=== PATIENT | male | born 1955 | race Caucasian/White ===

== ENCOUNTER → 2017-11-20 16:33 | Outpatient (CLI) | payer BC, SELFPAY ==
--- NOTE | 2017-11-20 16:50 | DI.REPORT_ITS ---
SYMPTOMS/DIAGNOSIS: COARSE WITH RALES LT BASE, COUGH, R05 PA AND LATERAL CHEST: The heart size is normal. There are linear densities seen in the right middle lobe which could represent atelectasis vs pneumonia. No left lower lobe abnormality is seen. IMPRESSION: Right middle lobe atelectasis vs pneumonia.
[2017-11-20 17:25] LABS: Abs Immature Grans 0.03 k/cumm (0.0-0.09); HCT 28.6 % (40.0-50.0); HGB 8.9 g/dL (13.5-17.5); Mean Corp. HGB Concentration 31.1 g/dL (32.0-36.0); Mean Corpuscular Hemoglobin 26.4 pg (27.0-33.0); Mean Corpuscular Volume 84.9 fL (80-95); Mean Platelet Volume 8.6 fL (8.0-11.0); Platelet Count 284 x1000/uL (130-400); RBC 3.37 m/cumm (4.50-6.00); White Blood Cell Count 13.48 k/cumm (4.4-10.8)
[2017-11-20 18:41] LABS: Absolute Eosinophil Count 0.27 k/cumm (0.0-0.7); Absolute Lymphocyte Count 5.26 k/cumm (1.2-3.4); Absolute Monocyte Count 1.62 k/cumm (0.11-0.7); Absolute Neutrophil Count 5.26 k/cumm (1.2-6.7); Atypical Lymphocytes % 22
[2017-11-20 18:42] LABS: Anisocytosis 2+; Diff Comment Manual Differential; Hypochromasia 2+; Microcytosis 2+; Other Cells 5
== END ==
PROVIDERS: PCP Family Medicine; Visit Provider Family Medicine
DX: R05 Cough (principal); R09.89 Other specified symptoms and signs involving the circulatory and respiratory systems; J98.4 Other disorders of lung
CPT/HCPCS: 36415; 71046; 85025

== ENCOUNTER → 2017-11-23 15:07 | Outpatient (CLI) | payer BC, SELFPAY | PROVIDERS: PCP Family Medicine; Visit Provider Family Medicine | DX: R79.89 Other specified abnormal findings of blood chemistry (principal) | CPT/HCPCS: 36415; 88185; 88184; 88189 ==

== ENCOUNTER 2018-01-14 10:41 | Outpatient (CLI) | payer BC, SELFPAY ==
[2018-01-14 11:10] LABS: Abs Immature Grans 0.02 k/cumm (0.0-0.09); Absolute Basophil Count 0.03 k/cumm (0.0-0.2); Absolute Eosinophil Count 0.18 k/cumm (0.0-0.7); Absolute Lymphocyte Count 0.48 k/cumm (1.2-3.4); Absolute Monocyte Count 0.44 k/cumm (0.11-0.7); Absolute Neutrophil Count 4.75 k/cumm (1.2-6.7); Basophils % 0.5; Eosinophils % 3.1; HCT 31.4 % (40.0-50.0); HGB 10.1 g/dL (13.5-17.5); Immature Grans % 0.3; Lymphocytes % 8.1; Mean Corp. HGB Concentration 32.2 g/dL (32.0-36.0); Mean Corpuscular Hemoglobin 27.2 pg (27.0-33.0); Mean Corpuscular Volume 84.6 fL (80-95); Mean Platelet Volume 8.1 fL (8.0-11.0); Monocytes % 7.5; Neutrophils % 80.5; Platelet Count 231 x1000/uL (130-400); RBC 3.71 m/cumm (4.50-6.00); RBC Distribution Width 18.3 % (11.8-14.1)
== END 2018-01-14 11:01 ==
PROVIDERS: Nurse Practitioner Adult Health; PCP Family Medicine; Visit Provider Internal Medicine
DX: C83.00 Small cell B-cell lymphoma, unspecified site (principal)
CPT/HCPCS: 36415; 86900; 86901; 85025

== ENCOUNTER 2018-01-19 16:51 | Emergency (ER) | payer BC, SELFPAY ==
[2018-01-19 16:59] VITALS: BP 110/63; PULSE 120; RESP 18; TEMP 38.3; O2SAT 98
--- NOTE | 2018-01-19 17:19 | W.ED.GENAD ---
Discharge Plan Disposition Patient Disposition: HOME Condition: Stable Discharge Details Chief Complaint: Fever Clinical Impression: Fever Primary Care Provider: Cb Finch ED Provider: Abdirahman Bell Home Meds and New Rx's Prescriptions: New levofloxacin 750 mg tablet 750 mg PO DAILY Qty: 6 RF: 0 Continue ibuprofen 600 MG tablet 600 mg PO DAILY PRNRF: 0 diazepam 5 MG tablet 5 mg PO BID PRNQty: 40 RF: 0 mupirocin 22 GM ointment 1 applic Topical BID Qty: 22 RF: 0 syringe (disposable) [B-D Slip Tip Syringe] 1 EACH syringe 1 ea Miscellaneous q 3 weeks Qty: 1 RF: 3 testosterone cypionate 100 MG/1 ML oil 100 mg IM Monthly Qty: 1 RF: 3 sildenafil [Viagra] 100 MG tablet 1 tab PO As Directed Qty: 6 RF: 4 prochlorperazine maleate [Compazine] 10 mg Tablet 5 mg PO PRN PRNRF: 0 allopurinol 300 mg Tablet 300 mg PO DAILY RF: 0 acyclovir 400 mg Tablet 400 mg PO BID RF: 0 Discharge Instructions Instructions: Fever in Adults (ED) Additional Instructions: follow up as scheduled with your oncologist on Sunday If you have severe worsening weakness, difficulty breathing, or feel significantly more ill go to the emergency department you can take 1000mg tylenol and 600mg ibuprofen every 6 hours as needed Discharge Data Discharge Physician: Abdirahman Bell Medical Decision Making 62 yo male with hx of waldenstrom's macroglobulinemia who had chemotherapy about 2 weeks ago per pt comes in with fever since yesterday. He also notes a cough for a few weeks and yesterday had n/v but none today.Denies recent travel, has no abdominal pain. Will obtain lab work and imaging to eval for neutropenic fever and pneumonia. Has no oral mucous membrane involvement and no skin sloughing but given his malignancy is at risk for sjs and ten. Will discus case with his oncologist when results are done pt remains stable and feels well. labs are reassuring, anc over 7000 so not neutropenic and other than mild hyponatremia and mild alk phos and bilirubin elevation no significant chemiestry abnormalities. Will discuss with pt's oncology team. Xray appears neg on my read Spoke with Dr. Reyes from [place]ology [place] [facility] [place] client relation specialist for dr. cantu. They advised that skin reactions are common with the chemotherpay agent he received and given no mucous membrane involvement or sloughing or blistering unlikely sjs or ten. They advised that he could either be admitted for observation or d/c'd home and return if worsening if he is reliable and f/u with his onvologist on Sunday. I discussed these options with the pt and using shared decision making he wants to go home and understands to return immediately if worsening. Oncology did ask the patient to be started on levofloxacin which I started him on and will prescribe. Differential Diagnosis neutropenic fever, pneumonia, pyelo HPI General Mode of arrival: ambulatory. Date/Time Provider Initiated Documentation: 01/19/18 16:53. Limitations to Documentation: no limitations. Information obtained by: patient. History of Present Illness 62 year old M presents to the emergency department with the chief complaint of fever, described as moderate, Quality is described as burning, Patient started experiencing this day(s) (1) and it has been constant. No relieving factors improve symptom(s), No exacerbating factors reported . Patient notes rash. Patient did receive the following treatments prior to arrival, none Related Data Home Medications Medication Instructions Recorded Confirmed ibuprofen 600 mg PO DAILY PRN 02/12/13 01/19/18 diazepam 5 mg PO BID PRN #40 tab-cap 11/04/15 01/19/18 mupirocin 1 applic TOPICAL BID #22 g 04/08/17 01/19/18 syringe (disposable) [B-D Slip Tip #1 box 05/30/17 Syringe] testosterone cypionate 100 mg IM Monthly #1 vial 08/03/17 01/19/18 sildenafil [Viagra] 1 tab PO As Directed #6 tab 08/28/17 01/19/18 acyclovir 400 mg PO BID 01/19/18 01/19/18 allopurinol 300 mg PO DAILY 01/19/18 01/19/18 levofloxacin 750 mg PO DAILY #6 tab 01/19/18 prochlorperazine maleate 5 mg PO PRN PRN 01/19/18 01/19/18 [Compazine] Previous Rx's Medication Instructions Recorded syringe (disposable) [B-D Slip Tip #1 box 05/30/17 Syringe] testosterone cypionate 100 mg IM Monthly #1 vial 08/03/17 sildenafil [Viagra] 1 tab PO As Directed #6 tab 08/28/17 levofloxacin 750 mg PO DAILY #6 tab 01/19/18 Allergies Allergy/AdvReac Type Severity Reaction Status Date / Time Sulfa (Sulfonamide Allergy Intermediate SKIN RASH Unverified 01/19/18 17:04 Antibiotics) walnut AdvReac Unknown Unverified 01/19/18 17:04 General Stated Complaint: Fever ANGELICA: 3 Review of Systems Review of Systems All systems reviewed & are unremarkable except as noted in HPI and below Constitutional Reports fever(s) Eyes Denies loss of vision ENT Denies change in voice Cardiovascular Denies chest pain and Denies dyspnea Respiratory Denies dyspnea Gastrointestinal Denies abdominal pain Genitourinary Denies dysuria Musculoskeletal Denies joint swelling Neurologic Denies loss of vision Psychiatric Denies depression Endocrine Denies cold intolerance and Denies heat intolerance Allergic/Immunologic Reports urticaria PFSH Family History Mother Diabetes Father Heart disease Brother Diabetes Grandfather No problems noted. Grandfather No problems noted. Grandmother Diabetes Grandmother No problems noted. Sister No problems noted. Sister No problems noted. Brother No problems noted. Brother No problems noted. Son Adopted Asthma Daughter Substance abuse Depression Adopted Daughter No problems noted. Social History Smoking/Tobacco Use Status: Never Surgical History Repair of inguinal hernia Repair of umbilical hernia Exam Const General: no acute distress Orientation: alert HENMT Head: normal to inspection Ears: external ears normal General nose exam: external nose normal Mouth: moist mucous membranes Eyes General: appearance normal, both eyes and all related structures Neck Neck: normal visual inspection Resp Effort & Inspection: normal respiratory effort and able to speak in complete sentences Cardio Rate: regular rate Skin General skin exam: other (erythema of both arms and torso that blanches and is not warm to touch) Neuro General: alert and oriented x3 Extrem General: normal to inspection Psych Mental Status: mental status grossly normal Course Vital Signs Temperature 38.3 C H 01/19/18 16:59 Pulse 120 H 01/19/18 16:59 Respiratory Rate 18 01/19/18 16:59 Blood Pressure 110/63 01/19/18 16:59 Pulse Oximetry 98 01/19/18 16:59 Temperature 38.3 C H 01/19/18 16:59 Temperature Source Skin 01/19/18 16:59 Pulse 120 H 01/19/18 16:59 Respiratory Rate 18 01/19/18 16:59 Respiratory Effort 01/19/18 17:10 Blood Pressure 110/63 01/19/18 16:59 Pulse Oximetry 98 01/19/18 16:59 Oxygen Delivery Method Room Air 01/19/18 16:59 Oxygen Flow Rate 0 01/19/18 16:59 Pain Level 2 01/19/18 16:59 Lab/Test Results Lab/Test Results: 01/19/18 17:06 Blood Blood Culture - Pending 01/19/18 17:06 Blood Blood Culture - Pending
--- NOTE | 2018-01-19 17:25 | ED.GENADUL_ITS ---
Discharge Plan Disposition Patient Disposition: HOME Condition: Stable Discharge Details Chief Complaint: Fever Clinical Impression: Fever Primary Care Provider: Cb Finch ED Provider: Abdirahman Bell Home Meds and New Rx's Prescriptions: New levofloxacin 750 mg tablet 750 mg PO DAILY Qty: 6 RF: 0 Continue ibuprofen 600 MG tablet 600 mg PO DAILY PRNRF: 0 diazepam 5 MG tablet 5 mg PO BID PRNQty: 40 RF: 0 mupirocin 22 GM ointment 1 applic Topical BID Qty: 22 RF: 0 syringe (disposable) [B-D Slip Tip Syringe] 1 EACH syringe 1 ea Miscellaneous q 3 weeks Qty: 1 RF: 3 testosterone cypionate 100 MG/1 ML oil 100 mg IM Monthly Qty: 1 RF: 3 sildenafil [Viagra] 100 MG tablet 1 tab PO As Directed Qty: 6 RF: 4 prochlorperazine maleate [Compazine] 10 mg Tablet 5 mg PO PRN PRNRF: 0 allopurinol 300 mg Tablet 300 mg PO DAILY RF: 0 acyclovir 400 mg Tablet 400 mg PO BID RF: 0 Discharge Instructions Instructions: Fever in Adults (ED) Additional Instructions: follow up as scheduled with your oncologist on Sunday If you have severe worsening weakness, difficulty breathing, or feel significantly more ill go to the emergency department you can take 1000mg tylenol and 600mg ibuprofen every 6 hours as needed Discharge Data Discharge Physician: Abdirahman Bell Medical Decision Making 62 yo male with hx of waldenstrom's macroglobulinemia who had chemotherapy about 2 weeks ago per pt comes in with fever since yesterday. He also notes a cough for a few weeks and yesterday had n/v but none today.Denies recent travel , has no abdominal pain. Will obtain lab work and imaging to eval for neutropenic fever and pneumonia. Has no oral mucous membrane involvement and no skin sloughing but given his malignancy is at risk for sjs and ten. Will discus case with his oncologist when results are done pt remains stable and feels well. labs are reassuring, anc over 7000 so not neutropenic and other than mild hyponatremia and mild alk phos and bilirubin elevation no significant chemiestry abnormalities. Will discuss with pt's oncology team. Xray appears neg on my read Spoke with Dr. Reyes from oncology at [facility] [place] who was stone polisher for dr. cantu. They advised that skin reactions are common with the chemotherpay agent he received and given no mucous membrane involvement or sloughing or blistering unlikely sjs or ten. They advised that he could either be admitted for observation or d/c'd home and return if worsening if he is reliable and f/u with his onvologist on Sunday. I discussed these options with the pt and using shared decision making he wants to go home and understands to return immediately if worsening. Oncology did ask the patient to be started on levofloxacin which I started him on and will prescribe. Differential Diagnosis neutropenic fever, pneumonia, pyelo HPI General Mode of arrival: ambulatory . Date/Time Provider Initiated Documentation: 01/19/18 16:53 . Limitations to Documentation: no limitations . Information obtained by: patient . History of Present Illness 62 year old M presents to the emergency department with the chief complaint of fever, described as moderate, Quality is described as burning, Patient started experiencing this day(s) (1) and it has been constant. No relieving factors improve symptom(s), No exacerbating factors reported . Patient notes rash. Patient did receive the following treatments prior to arrival, none Related Data Home Medications Medication Instructions Recorded Confirmed ibuprofen 600 mg PO DAILY PRN 02/12/13 01/19/18 diazepam 5 mg PO BID PRN #40 tab-cap 11/04/15 01/19/18 mupirocin 1 applic TOPICAL BID #22 g 04/08/17 01/19/18 syringe (disposable) [B-D Slip Tip #1 box 05/30/17 Syringe] testosterone cypionate 100 mg IM Monthly #1 vial 08/03/17 01/19/18 sildenafil [Viagra] 1 tab PO As Directed #6 tab 08/28/17 01/19/18 acyclovir 400 mg PO BID 01/19/18 01/19/18 allopurinol 300 mg PO DAILY 01/19/18 01/19/18 levofloxacin 750 mg PO DAILY #6 tab 01/19/18 prochlorperazine maleate 5 mg PO PRN PRN 01/19/18 01/19/18 [Compazine] Previous Rx's Medication Instructions Recorded syringe (disposable) [B-D Slip Tip #1 box 05/30/17 Syringe] testosterone cypionate 100 mg IM Monthly #1 vial 08/03/17 sildenafil [Viagra] 1 tab PO As Directed #6 tab 08/28/17 levofloxacin 750 mg PO DAILY #6 tab 01/19/18 Allergies Allergy/AdvReac Type Severity Reaction Status Date / Time Sulfa (Sulfonamide Allergy Intermediate SKIN RASH Unverified 01/19/18 17:04 Antibiotics) walnut AdvReac Unknown Unverified 01/19/18 17:04 General Stated Complaint: Fever ANGELICA: 3 Review of Systems Review of Systems All systems reviewed & are unremarkable except as noted in HPI and below Constitutional Reports fever(s) Eyes Denies loss of vision ENT Denies change in voice Cardiovascular Denies chest pain and Denies dyspnea Respiratory Denies dyspnea Gastrointestinal Denies abdominal pain Genitourinary Denies dysuria Musculoskeletal Denies joint swelling Neurologic Denies loss of vision Psychiatric Denies depression Endocrine Denies cold intolerance and Denies heat intolerance Allergic/Immunologic Reports urticaria PFSH Family History Mother Diabetes Father Heart disease Brother Diabetes Grandfather No problems noted. Grandfather No problems noted. Grandmother Diabetes Grandmother No problems noted. Sister No problems noted. Sister No problems noted. Brother No problems noted. Brother No problems noted. Son Adopted Asthma Daughter Substance abuse Depression Adopted Daughter No problems noted. Social History Smoking/Tobacco Use Status: Never Surgical History Repair of inguinal hernia Repair of umbilical hernia Exam Const General: no acute distress Orientation: alert HENMT Head: normal to inspection Ears: external ears normal General nose exam: external nose normal Mouth: moist mucous membranes Eyes General: appearance normal, both eyes and all related structures Neck Neck: normal visual inspection Resp Effort & Inspection: normal respiratory effort and able to speak in complete sentences Cardio Rate: regular rate Skin General skin exam: other (erythema of both arms and torso that blanches and is not warm to touch) Neuro General: alert and oriented x3 Extrem General: normal to inspection Psych Mental Status: mental status grossly normal Course Vital Signs Temperature 38.3 C H 01/19/18 16:59 Pulse 120 H 01/19/18 16:59 Respiratory Rate 18 01/19/18 16:59 Blood Pressure 110/63 01/19/18 16:59 Pulse Oximetry 98 01/19/18 16:59 Temperature 38.3 C H 01/19/18 16:59 Temperature Source Skin 01/19/18 16:59 Pulse 120 H 01/19/18 16:59 Respiratory Rate 18 01/19/18 16:59 Respiratory Effort 01/19/18 17:10 Blood Pressure 110/63 01/19/18 16:59 Pulse Oximetry 98 01/19/18 16:59 Oxygen Delivery Method Room Air 01/19/18 16:59 Oxygen Flow Rate 0 01/19/18 16:59 Pain Level 2 01/19/18 16:59 Lab/Test Results Lab/Test Results: 01/19/18 17:06 Blood Blood Culture - Pending 01/19/18 17:06 Blood Blood Culture - Pending
[2018-01-19] MEDS: Normal Saline 1,000 ML 1000 ML IV (17:32)
[2018-01-19 17:37] LABS: Lactate-non-spesis 1.8 mmol/L (0.6-1.4)
[2018-01-19 17:40] LABS: Abs Immature Grans 0.02 k/cumm (0.0-0.09); Absolute Basophil Count 0.02 k/cumm (0.0-0.2); Absolute Eosinophil Count 0.24 k/cumm (0.0-0.7); Absolute Lymphocyte Count 0.67 k/cumm (1.2-3.4); Absolute Neutrophil Count 8.06 k/cumm (1.2-6.7); Basophils % 0.2; Eosinophils % 2.6; HCT 31.3 % (40.0-50.0); HGB 10.5 g/dL (13.5-17.5); Immature Grans % 0.2; Lymphocytes % 7.1; Mean Corp. HGB Concentration 33.5 g/dL (32.0-36.0); Mean Corpuscular Hemoglobin 27.6 pg (27.0-33.0); Mean Corpuscular Volume 82.4 fL (80-95); Mean Platelet Volume 8.5 fL (8.0-11.0); Monocytes % 4.3; Neutrophils % 85.6; Platelet Count 208 x1000/uL (130-400); RBC Distribution Width 19.3 % (11.8-14.1); White Blood Cell Count 9.41 k/cumm (4.4-10.8)
[2018-01-19 17:51] LABS: INR 1.2 (1.0-3.5); PTT Activated 22.5 sec (21.0-31.4); Prothrombin Time 11.6 sec (9.3-10.8)
[2018-01-19 17:52] LABS: ALT 61 U/L (12-78); AST 37 U/L (15-37); Alkaline Phosphatase 127 U/L (46-116); Anion Gap 10.5 mmol/L (3-11); BUN 15 mg/dL (7-18); Bilirubin, Direct 0.22 mg/dL (0.00-0.20); Bilirubin, Total 1.4 mg/dL (0.2-1.0); CO2 25.5 mmol/L (21.0-32.0); CREATININE 1.07 mg/dL (0.70-1.30); Calcium 9.3 mg/dL (8.5-10.1); Chloride 94 mmol/L (98-107); Glucose 142 mg/dL (70-100); Potassium 3.8 mmol/L (3.5-5.1); Sodium 130 mmol/L (136-145)
[2018-01-19 18:05] LABS: Bilirubin Negative (Negative); Blood Small (Negative); Clarity Clear; Glucose Negative (Negative); Ketones Negative (Negative); Leukocyte Esterase Negative (Negative); Nitrite Negative (Negative); Specific Gravity <= 1.005 (1.005-1.025); Urobilinogen 0.2 EU/dL (Up TO 0.2); pH 5.5 (5-8)
--- NOTE | 2018-01-19 18:10 | DI.RAD_ITS ---
SYMPTOMS/DIAGNOSIS: FEVER PA AND LATERAL CHEST: The heart is not enlarged. Minimal linear opacities are present in the right lung base with some interval clearing from examination of 11/20/17. The lungs otherwise appear clear. No pleural effusions seen. CONCLUSION: Findings consistent with interval resolution of right basilar pneumonia since 11/20/17.
[2018-01-19 18:11] LABS: Bacteria Negative HPF (Negative); C & S Indicated? No; Casts Negative LPF (Negative); Crystals Negative HPF (Negative); Epithelial Cells Negative HPF (Negative); Mucus Negative (Negative); Other Cells Negative (Negative); RBC 0-2 (0-2); WBC 0-2 HPF (0-5)
[2018-01-19] MEDS: LEVOFLOXACIN 500 MG, LEVOFLOXACIN 250 MG 750 MG PO (18:59)
--- NOTE | 2018-01-19 19:09 | DI.VRAD_ITS ---
EXAM: XR Chest, 2 Views CLINICAL HISTORY: 62 years old, male; Signs and symptoms; Fever TECHNIQUE: Frontal and lateral views of the chest. COMPARISON: CR CHEST 2 VIEWS PA,LAT 11/20/2017 4:47 PM FINDINGS: Lungs: Decreased prominence of linear opacities in the right middle lobe. No airspace consolidation. Pleural space: No focal pathology. No pneumothorax. Heart: No focal pathology. No cardiomegaly. Mediastinum: Unremarkable. Bones/joints: Degenerative changes in the spine. IMPRESSION: Decreased prominence of linear opacities in the right middle lobe. The appearance is now most consistent with scarring or subsegmental atelectasis. Dictated and Authenticated by: Nelda Smith MD. Ordering:SIMA HENDRICKS MD
[2018-01-19 19:25] VITALS: BP 106/66; PULSE 102; RESP 16; TEMP 37.9; O2SAT 98
== END 2018-01-19 19:27 | disposition home or self-care (01) ==
PROVIDERS: Emergency Provider Emergency Medicine; PCP Family Medicine
DX: R59.0 Localized enlarged lymph nodes (principal); R05 Cough
CPT/HCPCS: 36415; 80053; 80076; 87040; 87529; 87631; 96360; 99283; 71046; 81003; 81015; 83605; 85025; 85610; 85730

== ENCOUNTER 2018-01-28 08:36 | Outpatient (CLI) | payer BC, SELFPAY ==
[2018-01-28 09:08] LABS: Abs Immature Grans 0.03 k/cumm (0.0-0.09); Absolute Basophil Count 0.02 k/cumm (0.0-0.2); Absolute Eosinophil Count 0.24 k/cumm (0.0-0.7); Absolute Lymphocyte Count 1.16 k/cumm (1.2-3.4); Absolute Monocyte Count 0.57 k/cumm (0.11-0.7); Absolute Neutrophil Count 3.05 k/cumm (1.2-6.7); Basophils % 0.4; Eosinophils % 4.7; HCT 28.7 % (40.0-50.0); HGB 9.7 g/dL (13.5-17.5); Immature Grans % 0.6; Lymphocytes % 22.9; Mean Corp. HGB Concentration 33.8 g/dL (32.0-36.0); Mean Corpuscular Hemoglobin 28.1 pg (27.0-33.0); Mean Corpuscular Volume 83.2 fL (80-95); Mean Platelet Volume 7.7 fL (8.0-11.0); Monocytes % 11.2; Neutrophils % 60.2; Platelet Count 269 x1000/uL (130-400); RBC 3.45 m/cumm (4.50-6.00); RBC Distribution Width 19.9 % (11.8-14.1); White Blood Cell Count 5.07 k/cumm (4.4-10.8)
== END 2018-01-28 08:56 ==
PROVIDERS: PCP Family Medicine; Visit Provider Internal Medicine
DX: C83.00 Small cell B-cell lymphoma, unspecified site (principal)
CPT/HCPCS: 36415; 86900; 86901; 85025

== ENCOUNTER 2018-01-29 14:56 | Outpatient (CLI) | payer BC, SELFPAY ==
--- NOTE | 2018-01-29 10:49 | DI.RAD_ITS ---
SYMPTOM/DIAGNOSIS: LOW BACK PAIN,SCIATICA, WALDENSTROMS MACROGLOBULINEMIA, M54.9, DORSALGIA,C88.00 LUMBAR SPINE: Gallstones are incidentally noted. Vertebral bodies are well maintained in height. There are endplate osteophytes throughout, greatest at L 5-S 1. There is mild disc space narrowing at L 2-3 and L 3-4. Moderate narrowing of the L 5- S 1 disc space is seen. There are prominent facet degenerative changes at L 4- 5 and L 5-S 1. No spondylolysis or spondylolisthesis is seen. IMPRESSION: Degenerative changes, greatest at L 5-S 1.
== END 2018-01-29 15:16 ==
PROVIDERS: PCP Family Medicine; Visit Provider Family Medicine
DX: M54.40 Lumbago with sciatica, unspecified side (principal); M47.817 Spondylosis without myelopathy or radiculopathy, lumbosacral region
CPT/HCPCS: 72110

== ENCOUNTER 2018-02-18 09:50 | Outpatient (CLI) | payer BC, SELFPAY ==
[2018-02-18 10:16] LABS: Abs Immature Grans 0.01 k/cumm (0.0-0.09); Absolute Basophil Count 0.03 k/cumm (0.0-0.2); Absolute Eosinophil Count 0.29 k/cumm (0.0-0.7); Absolute Lymphocyte Count 0.57 k/cumm (1.2-3.4); Absolute Monocyte Count 0.45 k/cumm (0.11-0.7); Absolute Neutrophil Count 4.27 k/cumm (1.2-6.7); Basophils % 0.5; Eosinophils % 5.2; HCT 35.1 % (40.0-50.0); HGB 12.2 g/dL (13.5-17.5); Immature Grans % 0.2; Lymphocytes % 10.1; Mean Corp. HGB Concentration 34.8 g/dL (32.0-36.0); Mean Corpuscular Hemoglobin 29.6 pg (27.0-33.0); Mean Corpuscular Volume 85.2 fL (80-95); Mean Platelet Volume 7.9 fL (8.0-11.0); Platelet Count 213 x1000/uL (130-400); RBC 4.12 m/cumm (4.50-6.00); RBC Distribution Width 18.9 % (11.8-14.1); White Blood Cell Count 5.62 k/cumm (4.4-10.8)
== END 2018-02-18 10:10 ==
PROVIDERS: PCP Family Medicine; Visit Provider Internal Medicine
DX: C83.00 Small cell B-cell lymphoma, unspecified site (principal)
CPT/HCPCS: 36415; 85025

== ENCOUNTER 2018-04-05 01:00 | Outpatient (CLI) | payer MEDICARE, SELFPAY ==
--- NOTE | 2018-04-05 07:54 | DI.MRI_ITS ---
SYMPTOM/DIAGNOSIS: LT LUMBAR RADICULOPATHY, SCIATICA, M54.30, NUMBNESS AND WEAKNESS LUMBAR SPINE MRI: Comparison is made with plain films dated 01/29/18. T 1, T 2 and STIR sagittal, T 1 coronal and T 1 and T 2 axial sequences were performed. The conus medullaris appears normal. There is slight disc bulging at L 1-2. At L 2-3, there is an endplate declivity consistent with a Schmorl's node. There is moderate concentric disc bulging but no significant central canal stenosis or neural foraminal narrowing. Mild broad base disc bulging and facet degenerative changes are seen at L 3-4. There is no significant neural foraminal narrowing. Similar degenerative disc changes are seen at L 4-5. There is no significant neural foraminal narrowing. There is loss of disc height at L 5-S 1 but no significant disc bulging or neural foraminal narrowing. No disc herniation is seen at any level. IMPRESSION: Degenerative disc changes. No evidence of a disc herniation, central canal stenosis or significant neural foraminal narrowing.
--- NOTE | 2018-04-05 16:16 | DI.VRAD_ITS ---
EXAM: MR Lumbar Spine Without and With Contrast. EXAM DATE/TIME: 04/05/2018 8:40 AM CLINICAL HISTORY: 62 years old, male; Pain; Low back pain and sciatica; Left; Patient HX: L lumbar radiculopathy TECHNIQUE: Multiplanar magnetic resonance images of the lumbar spine without and with intravenous contrast. COMPARISON: CR XR lumbar spine complete 01/29/2018 10:38 AM FINDINGS: Vertebrae: Unremarkable. Spinal cord: The conus terminates at the superior endplate of L1. Thoracic discs/Spinal canal/Neural foramina: Degenerative disc disease and facet arthrosis throughout the lumbar spine. DISCS/SPINAL CANAL/NEURAL FORAMINA: L1-L2: Mild posterior broad-based disc bulge. No nerve root impingement or spinal stenosis. L2-L3: Posterior broad-based mild disc protrusion, asymmetric to the left. No focal disc protrusion or definite nerve root impingement. There are small focal endplate deformities with mixed signal changes and mild enhancement as well as mild increased signal and enhancement of the adjacent disc. Although the findings are likely secondary to Schmorl's nodes and discovertebral signal changes, discovertebral infection is not completely excluded. Close clinical correlation is needed. Consider followup imaging as clinically indicated. L3-L4: Posterior broad-based disc mild protrusion and bilateral facet hypertrophy. No focal disc protrusion or nerve root impingement. L4-L5: Mild posterior broad-based disc protrusion and bilateral facet hypertrophy. No nerve root impingement or spinal stenosis. L5-S1: Bilateral facet hypertrophy. No focal disc protrusion or nerve impingement. Soft tissues: Unremarkable. IMPRESSION: 1. Degenerative spondylosis throughout the lumbar spine. No nerve root impingement or spinal stenosis. 2. Small endplate deformities, mild signal changes and enhancement within the posterior aspect of the L2-L3 disc level. Differential diagnosis includes Schmorl's nodes and discovertebral endplate signal changes and enhancement versus discovertebral infection. Further clinical evaluation is needed. Consider followup imaging as clinically indicated. Dictated and Authenticated by: Vaibhav Castellanos MD. Ordering:MARQUITA Vivar MD
== END 2018-04-05 01:20 ==
PROVIDERS: PCP Family Medicine; Visit Provider Family Medicine
DX: M54.42 Lumbago with sciatica, left side (principal); R20.0 Anesthesia of skin; R29.898 Other symptoms and signs involving the musculoskeletal system; M51.17 Intervertebral disc disorders with radiculopathy, lumbosacral region
CPT/HCPCS: 72148

== ENCOUNTER → 2018-07-15 12:15 | Outpatient (BNVA) | payer MEDICARE, SELFPAY | PROVIDERS: PCP Family Medicine; Visit Provider Psychiatry & Neurology Neurology | DX: M21.372 Foot drop, left foot (principal); M54.17 Radiculopathy, lumbosacral region | CPT/HCPCS: 99205; 99215 ==

== ENCOUNTER 2020-02-26 03:09 | Outpatient (CLI) | payer MEDICARE, SELFPAY ==
[2020-02-26 11:22] LABS: ALT 38 U/L (16-63); AST 23 U/L (15-37); Albumin 4.3 g/dL (3.4-5.0); Alkaline Phosphatase 104 U/L (46-116); Total Protein 7.2 g/dL (6.4-8.2)
[2020-03-01 08:58] LABS: Testosterone, Total 315 ng/dL (240-950)
[2020-03-01 14:17] LABS: PSA, Screening 19.6 ng/mL (0-4.5)
== END 2020-02-26 03:29 ==
PROVIDERS: PCP Family Medicine; Referring Provider Family Medicine; Visit Provider Family Medicine
DX: Z00.00 Encounter for general adult medical examination without abnormal findings (principal); Z79.890 Hormone replacement therapy; N40.0 Benign prostatic hyperplasia without lower urinary tract symptoms
CPT/HCPCS: 36415; 80076; 84153; 84403

== ENCOUNTER → 2020-03-10 10:30 | Outpatient (BNVA) | payer MEDICARE, SELFPAY | PROVIDERS: PCP Family Medicine; Referring Provider Family Medicine; Visit Provider Nurse Practitioner Gerontology | DX: N40.2 Nodular prostate without lower urinary tract symptoms (principal); E29.1 Testicular hypofunction; R97.20 Elevated prostate specific antigen [PSA]; Z85.72 Personal history of non-Hodgkin lymphomas | CPT/HCPCS: 99204; 99215 ==

== ENCOUNTER → 2020-03-30 14:27 | Outpatient (BNVA) | payer MEDICARE, SELFPAY | PROVIDERS: PCP Family Medicine; Referring Provider Family Medicine; Visit Provider Nurse Practitioner Gerontology | DX: R97.20 Elevated prostate specific antigen [PSA] (principal); F41.8 Other specified anxiety disorders | CPT/HCPCS: 99212 ==

== ENCOUNTER 2020-03-30 20:55 | Outpatient (REF) | payer MEDICARE, SELFPAY ==
[2020-03-31 18:54] LABS: PSA, Diagnostic 17.9 ng/mL (0.0-4.5)
== END 2020-03-30 21:15 ==
LOC: LBN 20:55
PROVIDERS: PCP Family Medicine; Visit Provider Nurse Practitioner Gerontology
DX: R97.20 Elevated prostate specific antigen [PSA] (principal)
CPT/HCPCS: 84153

== ENCOUNTER → 2020-04-16 10:25 | Outpatient (BNVA) | payer MEDICARE, SELFPAY | PROVIDERS: PCP Family Medicine; Referring Provider Family Medicine; Visit Provider Physical Therapy Assistant | DX: Z12.11 Encounter for screening for malignant neoplasm of colon (principal); Z86.010 Personal history of colon polyps ==

== ENCOUNTER 2020-04-22 02:36 | Outpatient (CLI) | payer MEDICARE, SELFPAY ==
[2020-04-23 15:31] LABS: COVID-19 RT-PCR Result NEGATIVE (Negative)
== END 2020-04-22 02:56 ==
PROVIDERS: PCP Family Medicine; Visit Provider Surgery
DX: Z11.52 Encounter for screening for COVID-19 (principal); Z01.818 Encounter for other preprocedural examination
CPT/HCPCS: U0003

== ENCOUNTER 2020-04-26 06:25 | Day surgery (SDC) | payer MEDICARE, SELFPAY ==
[2020-04-26 06:27] VITALS: BP 134/86; PULSE 73; RESP 16; TEMP 36.3; O2SAT 97
--- NOTE | 2020-04-26 06:39 | W.COLOREPORT ---
Date of service: 04/26/20 Time of Service: 08:04 Colonoscopy Report Date of procedure: 04/26/20 Pre-op diagnosis general: Hx of polyps Post-op diagnosis procedure note: same Procedure: Colonoscopy with polypectomy Surgeon: Pamela Richards Anesthesia proc note operative: other (General/ASA 2/William Reddy CRNA) Estimated blood loss (mL): 5 Pathology: other (Sigmoid polyp) Complications: None Disposition: same day Indications: 65 y/o male with history of Waldenstroms Macroglobulinemia presents for colonoscopy screening pre-op. His last screening was in 2010, which was remarkable for tubular adenoma. He denies a family history of colon cancer. He denies any changes in bowel habits including bloody or black tarry stools, abdominal pain, diarrhea or constipation. He denies constitutional symptoms. Denies use of marijuana or any other recreational or illegal drugs. He denies chest pain, palpitations, dyspnea or dyspnea with exertion. He denies prior history or family history of adverse reactions or complications with anesthesia. he reports walking and stretching daily for physical activity. The patient denies any history of stroke, VA, seizures, bleeding or clotting disorders. He denies having any implanted metal in his body. Prep: Miralax/Dulcolax Procedure Start Time: 07:35 Procedure End Time: 08:00 Retraction Time: 16 minutes Findings: One small adenomatous polyp in the proximal sigmoid colon. Procedure Description: After informed consent was obtained the patient was taken to the procedure room and placed in a left decubitous position. Monitors were applied and a time out was done. The patients name, date of , procedure, allergies to medications and metal in their body was reviewed. The patient was then sedated. Once sedated and comfortable a rectal exam was done. External exam was normal. Internal exam revealed a normal sphincter tone and no palpable masses. The prostate felt smooth and enlarged. The scope was then introduced and retro-flexed. No internal hemorrhoids, polyps or masses were identified on retro-flexion. The scope was then advanced to the cecum without difficulty. The ileocecal valve and appendiceal orifice were identified. The prep was good. The scope was then slowly retracted over 16 minutes back into the rectum. Polyps were removed with cold forceps in the proximal sigmoid colon. There was no diverticulosis noted. The scope was removed and the patient was woken up and taken back to Same day surgery in stable condition. The patient tolerated the procedure well and there were no immediate complications. Follow up: The patient should follow up in 5 years unless they develop changes in bowel habits or other new gastrointestinal complaints.
--- NOTE | 2020-04-26 06:40 | W.PM.DSUDISC ---
Discharge Plan Disposition Patient Disposition: HOME Condition: Good Discharge Details Reason For Visit: colonoscopy Attending Provider: Pamela Richards Primary Care Provider: Eric Rosario Home Meds and New Rx's Prescriptions: Continued diazepam 5 mg tablet 5 mg PO BID PRN (Reason: anxiety) Qty: 40 RF: 1 multivitamin [Daily Multi-Vitamin] Tablet 1 tab PO DAILY RF: 0 Adult Probiotic 3 billion cell capsule 3,000 mmu cells PO DAILY RF: 0 (DME) syringe (disposable) [B-D Slip Tip Syringe] 20 mL syringe 1 ea Miscellaneous q 3 weeks Qty: 40 RF: 3 ibuprofen 600 mg tablet 600 mg PO TID PRN (Reason: pain) Qty: 90 RF: 4 levofloxacin 500 mg tablet 500 mg PO DAILY Qty: 3 RF: 0 Discontinued bisacodyl [Dulcolax (bisacodyl)] 5 mg tablet,delayed release (DR/EC) 5 mg PO ONCE Qty: 4 RF: 0 No Action mupirocin 22 GM ointment 1 applic Topical BID Qty: 22 RF: 0 sildenafil [Viagra] 100 mg tablet 100 mg PO As Directed Qty: 6 RF: 4 Discharge Instructions Instructions: Colorectal Polyps (DC) Additional Instructions: Findings: one polyp Follow up: 5 years Please call if you develop: fevers >101.5 Nausea or Vomiting Abdominal pain that is not transient DAY SURGERY UNIT POST ENDOSCOPY INSTRUCTIONS 1. Because there will be medication in your system for the next 24 hours, you may feel a little sleepy. Your coordination will be affected. Therefore: a. Do not drive or operate dangerous equipment for 24 hours. b. Do not drink alcohol beverages for 24 hours (not even beer). c. Plan to go home and rest for the day. 2. Generally there are no restrictions on your activity after a day or so has gone by, but you may feel a bit fatigued for a few days. 3 After you arrive home you may have a light meal and return to a normal diet as you can tolerate it without feeling sick to your stomach. 4. After surgery, you may feel pain or discomfort. This should be only transient, but if it persists please contact your doctor. 5. If there are any questions regarding the findings of your procedure, please feel free to contact your doctor. 6. If you are unable to contact your doctor with a problem, contact the hospital at [phone]. 7. Continue all your regular medications unless directed otherwise. I understand the above instructions and have no questions. Signature of Patient or Responsible Adult Escort Date/Time Name of Responsible Adult Escort Signature of Nurse Date/Time Activity:: Activity as Tolerated Diet:: As Tolerated Discharge Orders Discharge Orders: Discharge Order (Routine); Ordered 04/26/20 Ordered By: Pamela Richards
--- NOTE | 2020-04-26 07:00 | DI.US_ITS ---
EXAM: ELEVATED PSA,R97.20 COMPARISON: No exams were available for comparison TECHNIQUE: Ultrasound performed using standard protocol. FINDINGS: Sonography was provided for Dr. Rivas during the performance of a transrectal ultrasound-guided pros wallace biopsy. Please refer to the procedure report for complete details. Prostatic volume is 55 cc. DATA REPOSITORY:
[2020-04-26] MEDS: Lactated Ringers 1,000 ML 80 ML IV (07:04)
--- NOTE | 2020-04-26 07:13 | HPE_ITS ---
Date of service: 04/26/20 Time of Service: 07:13 Assessment and Plan Assessment and plan (1) Elevated PSA: Status: Acute Assessment and plan: For ultrasound-guided biopsy of the proximal he will be having his colonoscopy under the same anesthetic. (2) Polyp of colon: Status: Chronic History of Present Illness History of Present Illness Chief Complaint: Elevated PSA Narrative: Champ is a 65-year-old male referred to urology by [facility] for elevated PSA. Patient reports that he is doing well and does not have any LUTS. He notes that he is not on any prostate medication. He denies gross hematuria, dysuria, frequency, urgency, flank pain, long bone pain, abnormal bleeding or bruising, or abnormal weight loss. He notes that he recently has finished his treatments and has been in remission for his lymphoma which was diagnosed approximately 2 to 3 years ago. He states that during his lymphoma treatment he was placed on testosterone to help increase his fatigue. He takes his injection every 3 weeks. It was last taken/administered on 26 February. Review of Systems Narrative: No fevers or chills No vision change or dysphasia No diabetes or thyroid dysfunction No shortness of breath, cough or hemoptysis No chest pain or palpitations No hepatitis, ulcers, jaundice No seizures, strokes or peripheral neuropathy No bleeding disorders Chronic back pain PFSH Medical History Benign prostatic hyperplasia (10/13/09) Cholelithiasis without obstruction (03/08/90) Hypogonadism in male (07/21/16) Knee pain DJD right knee Lumbago Other specified cardiac dysrhythmias rubi rhythm by ECG Polyp of colon T.A. Umbilical hernia Waldenstroms macroglobulinemia Surgical History Repair of inguinal hernia B/L Repair of umbilical hernia S/P Achilles tendon repair bilaterally S/P scrotal varicocelectomy Family History Mother , age 93 Diabetes Father , age 75 Heart disease Brother Diabetes Heart disease Maternal Grandfather No problems noted. Paternal Grandfather No problems noted. Maternal Grandmother Diabetes Paternal Grandmother , CHILDBIRTH at age 40. No problems noted. Sister No problems noted. Sister No problems noted. Brother No problems noted. Brother No problems noted. Son Adopted Asthma Daughter Substance abuse Depression Adopted Daughter No problems noted. Social History Smoking/Tobacco Use Status: Never Smoking risk assessment performed?: Yes Alcohol Intake: current Alcohol Intake frequency: 0-2 drinks per day Alcohol type: beer and wine Drug use: Rarely Substance use type: marijuana Caregiver/Support person: No Household members: spouse Housing: house Communication Needs: Corrective Lenses Do you need help understanding health information?: Rarely current occupation: Retired Pets and animals: No Sexually active: Yes Do you think of yourself as: straight/heterosexual Current gender identity: male What is your relationship status?: How often do you talk on the phone with friends or family?: twice per week How often do you get together with friends or relatives?: once per week How often do you attend baptism or spiritism services?: 1-3 times per year Do you belong to any clubs or organized social groups?: yes Panel score (0-1 are the most socially isolated patients): 3 What type of physical activity do you participate in: decline to answer Duration: 15-30 minutes/day Frequency: 3-4 times per week Meghan/Bahai: Episcopal Special meghan needs: No Seatbelt use: always Drive intox 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 Do you feel safe at home: Yes Do you feel safe in your relationship?: Yes Victim of physical abuse: No Victim of emotional abuse: No Victim of sexual abuse: No Would you like helpful sources: No Meds Home Medications and Allergies Home Medications Medication Instructions Recorded Confirmed Type mupirocin 1 applic TOPICAL BID #22 g 04/08/17 04/26/20 History diazepam 5 mg tablet 5 mg PO BID PRN #40 tab-cap 05/21/18 04/26/20 Rx syringe (disposable) 20 mL #40 each 03/21/19 03/10/20 Rx ibuprofen 600 mg tablet 600 mg PO TID PRN #90 tab 06/10/19 04/26/20 Rx sildenafil 100 mg tablet 100 mg PO As Directed #6 tab 12/19/19 04/26/20 Rx lactobacillus combination no.8 3 3,000 mmu cells PO DAILY 04/16/20 04/26/20 History billion cell capsule multivitamin 1 tab PO DAILY 04/16/20 04/26/20 History levofloxacin 500 mg tablet 500 mg PO DAILY #3 tab 04/19/20 04/26/20 Rx Allergies Allergy/AdvReac Type Severity Reaction Status Date / Time Sulfa (Sulfonamide Allergy Intermediate SKIN RASH Verified 04/26/20 06:31 Antibiotics) Exam Const General: cooperative, healthy appearing, comfortable and no acute distress Resp Effort & Inspection: normal respiratory effort Auscultation: clear to auscultation bilaterally Cardio Rate: regular rate Rhythm: regular rhythm GI Palpation: soft and no masses Neuro General: patient alert, patient awake and patient oriented x3 Results Last Vital Signs Temp 36.3 C L 04/26/20 06:27 Pulse 73 04/26/20 06:27 Resp 16 04/26/20 06:27 BP 134/86 04/26/20 06:27 Pulse Ox 97 04/26/20 06:27 COVID-19 Screening Have you, or household traveled for leisure in last 14 days?: No Had IN PERSON contact w/suspected or confirmed C-19 person: No
--- NOTE | 2020-04-26 07:55 | BOWEL_PTH ---
PATIENT: Champ Jurado LOC: [facility] U#:[id number] AGE/SX: 65/M ROOM: RE04/26/[address]: Pamela Richards MD : 1955 BED: DIS: 04/26/2020 SPEC #: [id number] RECD: 04/26/20 12:18 STATUS: ZARA REBoyd #: [id number] JENNIFER: 04/26/20 07:[address]: Pamela Richards DEPT: Surgical Specimen RECD BY: Arabella Peters ENTERED: 04/26/20 12:18 SP TYPE: Bowel OTHR DR: Eric Rosario MD Tissues: 1 - BIOPSY BOWEL Procedures: GROSS AND MICRO LEVEL 4 Comments: [id number]
--- NOTE | 2020-04-26 08:33 | PDOC.DSDIS_ITS ---
Discharge Plan Disposition Patient Disposition: HOME Condition: Good Discharge Details Reason For Visit: colonoscopy Attending Provider: Pamela Richards Primary Care Provider: Eric Rosario Home Meds and New Rx's Prescriptions: Continued diazepam 5 mg tablet 5 mg PO BID PRN (Reason: anxiety) Qty: 40 RF: 1 multivitamin [Daily Multi-Vitamin] Tablet 1 tab PO DAILY RF: 0 Adult Probiotic 3 billion cell capsule 3,000 mmu cells PO DAILY RF: 0 (DME) syringe (disposable) [B-D Slip Tip Syringe] 20 mL syringe 1 ea Miscellaneous q 3 weeks Qty: 40 RF: 3 ibuprofen 600 mg tablet 600 mg PO TID PRN (Reason: pain) Qty: 90 RF: 4 levofloxacin 500 mg tablet 500 mg PO DAILY Qty: 3 RF: 0 Discontinued bisacodyl [Dulcolax (bisacodyl)] 5 mg tablet,delayed release (DR/EC) 5 mg PO ONCE Qty: 4 RF: 0 No Action mupirocin 22 GM ointment 1 applic Topical BID Qty: 22 RF: 0 sildenafil [Viagra] 100 mg tablet 100 mg PO As Directed Qty: 6 RF: 4 Discharge Instructions Instructions: Colorectal Polyps (DC) Additional Instructions: Followup with Dr Rivas 1 to 2 weeks to discuss pathology results - make sure his is authorized to come to appointment as well Findings: one polyp Follow up: 5 years Please call if you develop: fevers >101.5 Nausea or Vomiting Abdominal pain that is not transient DAY SURGERY UNIT POST ENDOSCOPY INSTRUCTIONS 1. Because there will be medication in your system for the next 24 hours, you may feel a little sleepy. Your coordination will be affected. Therefore: a. Do not drive or operate dangerous equipment for 24 hours. b. Do not drink alcohol beverages for 24 hours (not even beer). c. Plan to go home and rest for the day. 2. Generally there are no restrictions on your activity after a day or so has gone by, but you may feel a bit fatigued for a few days. 3 After you arrive home you may have a light meal and return to a normal diet as you can tolerate it without feeling sick to your stomach. 4. After surgery, you may feel pain or discomfort. This should be only transient, but if it persists please contact your doctor. 5. If there are any questions regarding the findings of your procedure, please f eel free to contact your doctor. 6. If you are unable to contact your doctor with a problem, contact the hospital at [phone]. 7. Continue all your regular medications unless directed otherwise. I understand the above instructions and have no questions. Signature of Patient or Responsible Adult Escort Date/Time Name of Responsible Adult Escort Signature of Nurse Date/Time Stand Alone Forms: DSU Post op Instructions, Monica Chong (DSU) Activity:: Activity as Tolerated Shower/Bathe:: 24 hours Diet:: As Tolerated Discharge Orders Discharge Orders: Discharge Order (Routine); Ordered 04/26/20 Ordered By: Pamela Richards Discharge Data Discharge Comment: pt must void prior to discharge DS: Diagnosis Discharge Diagnosis (1) Elevated PSA: Status: Acute (2) Polyp of colon: Status: Chronic
[2020-04-26] MEDS: Lidocaine 2% Jelly 6 ML SYR (08:36)
--- NOTE | 2020-04-26 08:40 | PROST_PTH ---
PATIENT: Champ Jurado LOC: [facility] U#:[id number] AGE/SX: 65/M ROOM: RE04/26/[address]: Pamela Richards MD : 1955 BED: DIS: 04/26/2020 SPEC #: [id number] RECD: 04/26/20 12:28 STATUS: ZARA REBoyd #: [id number] JENNIFER: 04/26/20 08:[address]: Pamela Richards DEPT: Surgical Specimen RECD BY: Arabella Peters ENTERED: 04/26/20 12:31 SP TYPE: PROST OTHR DR: Eric Rosario MD Tissues: 1 - PROSTATE NEEDLE BIOPSY 2 - PROSTATE NEEDLE BIOPSY 3 - PROSTATE NEEDLE BIOPSY 4 - PROSTATE NEEDLE BIOPSY 5 - PROSTATE NEEDLE BIOPSY 6 - PROSTATE NEEDLE BIOPSY 7 - PROSTATE NEEDLE BIOPSY 8 - PROSTATE NEEDLE BIOPSY 9 - PROSTATE NEEDLE BIOPSY 10 - PROSTATE NEEDLE BIOPSY 11 - PROSTATE NEEDLE BIOPSY 12 - PROSTATE NEEDLE BIOPSY Procedures: GROSS AND MICRO LEVEL 4 Comments: [id number]
[2020-04-26 09:07] VITALS: BP 155/80; PULSE 62; RESP 18; TEMP 35.9; O2SAT 99
--- NOTE | 2020-04-26 09:09 | W.PM.OP ---
Date of service: 04/26/20 Time of Service: 08:20 Operative Note Operative Note DATE OF PROCEDURE: 04/26/20 PRE-OP DIAGNOSIS: Elevated PSA POST-OP DIAGNOSIS: same PROCEDURE: Transrectal ultrasound-guided biopsy of the prostate SURGEON: Ketan Rivas ANESTHESIA: other (General/ASA 2/William Reddy CRNA) ESTIMATED BLOOD LOSS: 25 PATHOLOGY: other (12 laterally directed biopsies of the prostate) COMPLICATIONS: None Patient was transported to: same day Patient's condition: stable Indications: This is a 65-year-old gentleman who has a finding of an elevated PSA of 17.9 ng/mL. He has been on testosterone replacement therapy in the past. He presents for ultrasound-guided biopsy of the prostate Findings: Prostate volume 55 cc Calcifications in the transition zone No obvious hypoechoic areas in the peripheral zone Procedure Description: The patient was brought to the operating room on 04/26/2020. After successful induction of general anesthesia without intubation, he was placed in the left lateral position. He then underwent colonoscopy by the general surgery team. Once the colonoscopy was completed, we prepared for ultrasound-guided biopsy of the prostate. Transrectal imaging of the prostate was performed using a variable megahertz transducer. The prostate was imaged in transverse and longitudinal planes. The prostatic volume was calculated at 55 cc. The prostate was diffusely enlarged with a few calcifications seen in the transition zone. No specific hypoechoic areas were seen in the peripheral zone. A periprostatic nerve block was performed using 1% Xylocaine. We then took 12 laterally directed biopsies and sent each of the specimen to pathology for permanent section. He tolerated this procedure well with no acute complications. He was taken back to day surgery in stable condition.
== END 2020-04-26 10:05 | disposition home or self-care (01) ==
PROVIDERS: Urology; PCP Family Medicine; Visit Provider Surgery
PROC: 0DJD8ZZ Inspection of Lower Intestinal Tract, Via Natural or Artificial Opening Endoscopic (ICD-10-PCS; CPT 45378; principal; 2020-04-26 07:30)
DX: Z12.11 Encounter for screening for malignant neoplasm of colon (principal); R97.20 Elevated prostate specific antigen [PSA]; Z86.010 Personal history of colon polyps; C61 Malignant neoplasm of prostate; Z80.0 Family history of malignant neoplasm of digestive organs; D12.4 Benign neoplasm of descending colon
CPT/HCPCS: 55700; 45380; 76942; 88305; NC

== ENCOUNTER → 2020-05-11 11:06 | Outpatient (BNVA) | payer MEDICARE, SELFPAY | PROVIDERS: PCP Family Medicine; Referring Provider Family Medicine; Visit Provider Urology | DX: Z48.816 Encounter for surgical aftercare following surgery on the genitourinary system (principal); C61 Malignant neoplasm of prostate | CPT/HCPCS: 99214; 99443 ==

== ENCOUNTER 2020-05-26 01:11 | Outpatient (CLI) | payer MEDICARE, SELFPAY ==
--- NOTE | 2020-05-26 07:00 | DI.NM_ITS ---
EXAM: NM BONE SCAN WHOLE BODY GRP CLINICAL HISTORY: baseline after new diagnosis of prostate cancer,C61. TECHNIQUE: Injected Dose: 25 mCi Tc-99m MDP Delayed Images: 2-3 hours. COMPARISON: No exams were available for comparison FINDINGS: There is no abnormal focal uptake in the skeleton to suggest metastatic osseous disease. There is increased focal uptake seen in the anterior neck suprasternal notch area. This is in the re gion of the thyroid gland and may be significant uptake. Below this level there is symmetrical uptak e in these in both sterno clavicular joints which is most probably degenerative. IMPRESSION: 1. No evidence of osseous metastatic disease. 2. There is abnormal focal uptake seen in the lower anterior neck suprasternal notch region. This is in the region of the thyroid gland. Recommend further imaging of this area, starting with ultrasoun d of the thyroid gland and midline tissues above the thyroid. Also recommend plain films of the cerv ical spine. DATA REPOSITORY:
== END 2020-05-26 01:12 ==
LOC: DI 01:12
PROVIDERS: PCP Family Medicine; Visit Provider Urology
DX: C61 Malignant neoplasm of prostate (principal); Z12.89 Encounter for screening for malignant neoplasm of other sites
CPT/HCPCS: 78306

== ENCOUNTER → 2020-05-28 11:00 | Outpatient (BNVA) | payer MEDICARE, SELFPAY | PROVIDERS: PCP Family Medicine; Referring Provider Family Medicine; Visit Provider Urology | DX: C61 Malignant neoplasm of prostate (principal); R97.20 Elevated prostate specific antigen [PSA]; E29.1 Testicular hypofunction | CPT/HCPCS: 99215; G2212 ==

== ENCOUNTER → 2020-06-17 10:31 | Outpatient (BNVA) | payer MEDICARE, SELFPAY | PROVIDERS: PCP Family Medicine; Referring Provider Family Medicine; Visit Provider Urology | DX: C61 Malignant neoplasm of prostate (principal) | CPT/HCPCS: 99214; 99215 ==

== ENCOUNTER → 2020-09-24 10:29 | Outpatient (BNVA) | payer MEDICARE, SELFPAY | PROVIDERS: PCP Family Medicine; Referring Provider Family Medicine; Visit Provider Urology | DX: C61 Malignant neoplasm of prostate (principal) | CPT/HCPCS: 99214; 99215 ==

== ENCOUNTER 2020-11-04 14:35 | Outpatient (CLI) | payer MEDICARE, SELFPAY ==
[2020-11-05 18:32] LABS: PSA, Diagnostic 21.9 ng/mL (0.0-4.5)
== END 2020-11-04 14:36 | disposition home or self-care (01) ==
LOC: LBO 14:40
PROVIDERS: PCP Family Medicine; Visit Provider Urology
DX: C61 Malignant neoplasm of prostate (principal)
CPT/HCPCS: 36415; 84153

== ENCOUNTER 2021-03-23 00:10 | Outpatient (CLI) | payer MEDICARE, SELFPAY ==
--- NOTE | 2021-03-23 07:00 | DI.US_ITS ---
Exam(s) US THYROID EXAM: US THYROID CLINICAL HISTORY: thyroid disease,e07.9,disorder of thyroid gland, f/u bone scan. TECHNIQUE: Ultrasound thyroid performed using standard protocol. COMPARISON: US US PROSTATE BIOPSY from 04/26/2020 NM NM BONE SCAN WHOLE BODY GRP from 05/26/2020 FINDINGS: Both thyroid lobes exhibit normal size as does the isthmus. There findings in both thyroid lobes, mo st significant finding in the right lobe. RIGHT THYROID LOBE: Measures 1.7 cm AP x 2.1 cm wide x 5.6 cm craniocaudal The largest most significant nodule is at approximately the midpole level. It is called nodule #1 Nodule #1 Size: Measures 1.7 cm wide by 0.9 cm AP by 1.8 cm craniocaudal cm Composition: Mixed solid-cystic= 1 point Echogenicity: Solid component is hypoechoic relative to the remainder of the gland= 2pts Shape: Wider than taller-0 points Margin: Smooth- 0 points Echogenic Foci: None - 0 points Total Points for this nodule: 3 ACR Ti-Rads Category: TR3 Given that this nodule is between 1.5 and 2.5 cm maximum measurement, it can be followed. Nodule #2 the 2nd nodule the right lobe is higher up in the right lobe. Size: Measures 0.4 x 0.5 x 0.9 cm Composition: Almost completely solid-2 points Echogenicity: Hypoechoic- 2 points Shape: Wider than taller- 0 points Margin: Smooth-0 points Echogenic Foci: None-0 points Total points for this nodule: 4 ACR Ti-Rads Category: TR4. Given that this nodule measures less than 1.5 cm can be followed LEFT THYROID LOBE: Measures 1.6 cm AP x 2.0 wide x cm craniocaudal At the junction of the isthmus and left lobe there is a oval benign cyst measuring 10 by 4 millimeter s. Another smaller cyst is also noted in the left lobe. Laterally there is a small solid nodule, labeled as nodule #1 Nodule #1 Size: Measures 0.5 x 0.4 x 0.3 cm Composition: Mixed efofk-daktof-7 points Echogenicity: Hypoechoic-2 points Shape: Wider than taller-0 points Margin: Smooth-0 points Echogenic Foci: None-0 points Total points for this nodule: 3 ACR Ti-Rads Category: 3. This small nodule can be followed. LYMPH NODES: There is no significant adenopathy. IMPRESSION: 1. Both thyroid lobes exhibit upper normal size, as does the isthmus. 2. The main nodular finding is the largest nodule which is in the mid-lower right thyroid lobe, antonieta tering as a TIRADS 3 nodule. Maximum size of this nodules 1.8 cm and therefore it can be followed. Recommend repeat thyroid ultrasound in 1 year, earlier if clinically indicated. 3. There is no significant lymphadenopathy. DATA REPOSITORY:
== END 2021-03-23 00:30 ==
PROVIDERS: PCP Family Medicine; Visit Provider Family Medicine
DX: E04.2 Nontoxic multinodular goiter (principal); E07.89 Other specified disorders of thyroid
CPT/HCPCS: 36415; 84403; 76536; 84153

== ENCOUNTER 2021-03-23 01:40 | Outpatient (CLI) | payer MEDICARE, SELFPAY ==
[2021-03-23 22:55] LABS: PSA, Diagnostic 23.4 ng/mL (0.0-4.5)
[2021-03-27 09:26] LABS: Testosterone, Total 259 ng/dL (240-950)
== END 2021-03-23 01:41 | disposition home or self-care (01) ==
LOC: LBO 01:40
PROVIDERS: PCP Family Medicine; Visit Provider Urology
DX: C61 Malignant neoplasm of prostate (principal)
CPT/HCPCS: 36415; 84403; 84153

== ENCOUNTER 2021-05-19 15:48 | Outpatient (REF) | payer MEDICARE, SELFPAY | END 2021-05-19 15:49 | disposition home or self-care (01) | LOC: LBN 15:48 | PROVIDERS: PCP Family Medicine; Visit Provider Urology | DX: R39.89 Other symptoms and signs involving the genitourinary system (principal) | CPT/HCPCS: 87086 ==

== ENCOUNTER 2021-05-30 02:22 | Outpatient (CLI) | payer MEDICARE, SELFPAY ==
[2021-05-30 11:40] LABS: Source Nasal/Nares
[2021-05-30 17:58] LABS: COVID-19 PCR Negative (Negative)
== END 2021-05-30 02:23 | disposition home or self-care (01) ==
PROVIDERS: PCP Family Medicine; Visit Provider Urology
DX: Z20.822 Contact with and (suspected) exposure to COVID-19 (principal); Z01.818 Encounter for other preprocedural examination
CPT/HCPCS: 87635; U0005

== ENCOUNTER 2021-08-02 06:01 | Outpatient (CLI) | payer MEDICARE, SELFPAY ==
[2021-08-02 14:28] LABS: Calculated LDL 138 mg/dL (<100); Cholesterol 198 mg/dL (<200); HDL Cholesterol 48 mg/dL (40-60); Triglyceride 63 mg/dL (<150)
[2021-08-03 19:16] LABS: PSA, Ultrasensitive 0.05 ng/mL (<= 4.5)
== END 2021-08-02 06:02 | disposition home or self-care (01) ==
LOC: LBO 06:01
PROVIDERS: PCP Family Medicine; Visit Provider Urology
DX: C61 Malignant neoplasm of prostate; E78.00 Pure hypercholesterolemia, unspecified
CPT/HCPCS: 36415; 80061; 84153

== ENCOUNTER 2021-09-07 03:57 | Outpatient (CLI) | payer MEDICARE, SELFPAY ==
[2021-09-07 14:57] LABS: Abs Immature Grans 0.03 10^3/uL (0.0-0.06); Absolute Basophil Count 0.04 10^3/uL (0.0-0.2); Absolute Lymphocyte Count 1.08 10^3/uL (1.2-3.4); Absolute Monocyte Count 0.31 10^3/uL (0.1-0.8); Absolute Neutrophil Count 3.95 10^3/uL (1.2-6.7); Basophils % 0.7; Eosinophils % 1.8; HCT 39.8 % (40.0-50.0); HGB 13.6 g/dL (13.5-17.5); Immature Grans % 0.5; Lymphocytes % 19.6; MCH 29.1 pg (27.0-33.0); MCHC 34.2 % (32.0-36.0); MCV 85 fL (80-95); MPV 9.2 fL (8.0-11.0); Monocytes % 5.6; Neutrophils % 71.8; Platelet Count 212 10^3/uL (130-400); RBC 4.68 10^6/uL (4.36-5.78); RDW 13.7 % (11.8-14.1); RDW-SD 42.9 fL; WBC 5.51 10^3/uL (4.4-10.8)
[2021-09-07 15:41] LABS: ALT 27 U/L (16-63); AST 15 U/L (15-37); Alkaline Phosphatase 120 U/L (46-116); BUN 11 mg/dL (7-18); CREATININE 0.8 mg/dL (0.70-1.30); Calcium 9.1 mg/dL (8.5-10.1); Chloride 104 mmol/L (98-107); Glucose 117 mg/dL (74-106); LDH 133 U/L (85-227); Potassium 4.4 mmol/L (3.5-5.1); Sodium 141 mmol/L (136-145); Total Protein 6.5 g/dL (6.4-8.2)
[2021-09-08 10:16] LABS: IgA 74 mg/dL (85-499); IgG 535 mg/dL (610-1,616); IgM 459 mg/dL (35-242)
[2021-09-08 21:36] LABS: PSA, Ultrasensitive 0.04 ng/mL (<= 4.5)
== END 2021-09-07 03:58 | disposition home or self-care (01) ==
PROVIDERS: Radiology Radiation Oncology; PCP Family Medicine; Visit Provider Nurse Practitioner Adult Health
DX: C88.0 Waldenstrom macroglobulinemia (principal); C61 Malignant neoplasm of prostate
CPT/HCPCS: 36415; 80053; 82784; 84153; 83615; 85025

== ENCOUNTER 2021-11-29 03:05 | Outpatient (CLI) | payer MEDICARE, SELFPAY ==
[2021-11-29 09:57] LABS: Abs Immature Grans 0.01 10^3/uL (0.0-0.06); Absolute Basophil Count 0.03 10^3/uL (0.0-0.2); Absolute Eosinophil Count 0.07 10^3/uL (0.0-0.7); Absolute Lymphocyte Count 1.03 10^3/uL (1.2-3.4); Absolute Neutrophil Count 3.23 10^3/uL (1.2-6.7); Basophils % 0.6; Eosinophils % 1.5; HCT 39.3 % (40.0-50.0); HGB 13.6 g/dL (13.5-17.5); Immature Grans % 0.2; Lymphocytes % 21.6; MCHC 34.6 % (32.0-36.0); MCV 87 fL (80-95); MPV 8.9 fL (8.0-11.0); Monocytes % 8.4; Neutrophils % 67.7; Platelet Count 147 10^3/uL (130-400); RBC 4.54 10^6/uL (4.36-5.78); RDW 13.4 % (11.8-14.1); RDW-SD 42.5 fL; WBC 4.77 10^3/uL (4.4-10.8)
[2021-11-29 10:22] LABS: ALT 26 U/L (16-63); AST 17 U/L (15-37); Albumin 4.1 g/dL (3.4-5.0); Alkaline Phosphatase 82 U/L (46-116); BUN 16 mg/dL (7-18); Bilirubin, Total 1.9 mg/dL (0.2-1.0); CREATININE 0.9 mg/dL (0.70-1.30); Chloride 103 mmol/L (98-107); Glucose 101 mg/dL (74-106); LDH 131 U/L (85-227); Potassium 4.4 mmol/L (3.5-5.1); Sodium 138 mmol/L (136-145); Total Protein 6.9 g/dL (6.4-8.2)
[2021-11-30 09:42] LABS: IgA 73 mg/dL (85-499); IgG 559 mg/dL (610-1,616); IgM 491 mg/dL (35-242)
[2021-11-30 11:42] LABS: Lyme Ab w Rflx to Lyme Confirm Negative (Negative)
[2021-11-30 15:11] LABS: PSA, Ultrasensitive 0.06 ng/mL (<= 4.5)
[2021-12-01 20:38] LABS: Anaplasma phagocytophilum Negative (Negative); B. miyamotoi PCR Negative (Negative); Babesia divergens/MO-1 Negative (Negative); Babesia duncani Negative (Negative); Babesia microti Negative (Negative); Ehrlichia chaffeensis Negative (Negative); Ehrlichia ewingii/canis Negative (Negative); Ehrlichia muris eauclairensis Negative (Negative)
== END 2021-11-29 03:06 | disposition home or self-care (01) ==
PROVIDERS: Nurse Practitioner Adult Health; Physician Assistant; PCP Family Medicine; Visit Provider Radiology Radiation Oncology
DX: C61 Malignant neoplasm of prostate (principal); C88.0 Waldenstrom macroglobulinemia; M25.561 Pain in right knee; M25.461 Effusion, right knee
CPT/HCPCS: 80053; 82784; 84153; 87798; 83615; 85025; 86618

== ENCOUNTER 2022-05-09 03:09 | Outpatient (CLI) | payer MEDICARE, SELFPAY ==
[2022-05-09 13:34] LABS: Abs Immature Grans 0.02 10^3/uL (0.0-0.06); Absolute Basophil Count 0.06 10^3/uL (0.0-0.2); Absolute Eosinophil Count 0.08 10^3/uL (0.0-0.7); Absolute Monocyte Count 0.45 10^3/uL (0.1-0.8); Absolute Neutrophil Count 5.04 10^3/uL (1.2-6.7); Basophils % 0.8; Eosinophils % 1.1; HCT 40.4 % (40.0-50.0); HGB 13.9 g/dL (13.5-17.5); Immature Grans % 0.3; MCH 30.1 pg (27.0-33.0); MCHC 34.4 % (32.0-36.0); MCV 87 fL (80-95); MPV 8.9 fL (8.0-11.0); Monocytes % 6.3; Neutrophils % 70.5; Platelet Count 174 10^3/uL (130-400); RBC 4.62 10^6/uL (4.36-5.78); RDW 13.6 % (11.8-14.1); RDW-SD 43.7 fL; WBC 7.15 10^3/uL (4.4-10.8)
[2022-05-09 13:50] LABS: ALT 25 U/L (16-63); AST 22 U/L (15-37); Albumin 4.1 g/dL (3.4-5.0); Alkaline Phosphatase 107 U/L (46-116); Anion Gap 5.8 mmol/L (3-11); BUN 12 mg/dL (7-18); Bilirubin, Total 1.4 mg/dL (0.2-1.0); CO2 31.2 mmol/L (21.0-32.0); CREATININE 0.9 mg/dL (0.70-1.30); Calcium 9.4 mg/dL (8.5-10.1); Chloride 103 mmol/L (98-107); Estimated GFR 92.45 (mL/min/1.73m2); Glucose 107 mg/dL (74-106); LDH 158 U/L (85-227); Potassium 4.2 mmol/L (3.5-5.1); Sodium 140 mmol/L (136-145)
[2022-05-10 10:16] LABS: IgA 87 mg/dL (85-499); IgG 613 mg/dL (610-1616); IgM 622 mg/dL (35-242)
== END 2022-05-09 03:10 | disposition home or self-care (01) ==
LOC: LBO 03:09
PROVIDERS: PCP Family Medicine; Visit Provider Nurse Practitioner Adult Health
DX: C61 Malignant neoplasm of prostate (principal); C88.0 Waldenstrom macroglobulinemia
CPT/HCPCS: 36415; 80053; 82784; 84153; 83615; 85025

== ENCOUNTER 2022-07-19 14:37 | Outpatient (CLI) | payer MEDICARE, SELFPAY ==
[2022-07-21 16:42] LABS: PSA, Ultrasensitive 0.13 ng/mL (<= 4.5)
== END 2022-07-19 14:38 | disposition home or self-care (01) ==
LOC: LBO 14:48
PROVIDERS: PCP Family Medicine; Visit Provider Radiology Radiation Oncology
DX: C61 Malignant neoplasm of prostate (principal)
CPT/HCPCS: 36415; 84153

== ENCOUNTER → 2022-08-28 11:00 | Outpatient (BNVA) | payer MEDICARE, SELFPAY | PROVIDERS: PCP Family Medicine; Referring Provider Family Medicine; Visit Provider Nurse Practitioner Gerontology | DX: N52.9 Male erectile dysfunction, unspecified (principal); C61 Malignant neoplasm of prostate | CPT/HCPCS: 99213 ==

== ENCOUNTER 2022-10-13 14:55 | Outpatient (CLI) | payer MEDICARE, SELFPAY ==
[2022-10-16 18:01] LABS: PSA, Ultrasensitive <0.01 ng/mL (<= 4.5)
[2022-10-19 13:53] LABS: Testosterone, Total <7.0 ng/dL (240-950)
== END 2022-10-13 14:56 | disposition home or self-care (01) ==
LOC: LBO 14:55
PROVIDERS: PCP Family Medicine; Visit Provider Radiology Radiation Oncology
DX: C61 Malignant neoplasm of prostate (principal)
CPT/HCPCS: 36415; 84153; 84403

== ENCOUNTER → 2022-12-05 09:25 | Outpatient (BNVA) | payer MEDICARE, SELFPAY | PROVIDERS: PCP Family Medicine; Referring Provider Family Medicine; Visit Provider Surgery | DX: K43.2 Incisional hernia without obstruction or gangrene (principal) | CPT/HCPCS: 99213 ==

== ENCOUNTER 2022-12-28 04:06 | Outpatient (CLI) | payer MEDICARE, SELFPAY ==
[2022-12-28 13:06] LABS: Abs Immature Grans 0.01 10^3/uL (0.0-0.06); Absolute Basophil Count 0.02 10^3/uL (0.0-0.2); Absolute Eosinophil Count 0.05 10^3/uL (0.0-0.7); Absolute Lymphocyte Count 0.35 10^3/uL (1.2-3.4); Absolute Neutrophil Count 3.46 10^3/uL (1.2-6.7); Basophils % 0.5; Eosinophils % 1.2; HCT 33.3 % (40.0-50.0); HGB 11.6 g/dL (13.5-17.5); Immature Grans % 0.2; Lymphocytes % 8.4; MCH 30.7 pg (27.0-33.0); MCHC 34.8 % (32.0-36.0); MCV 88 fL (80-95); MPV 8.6 fL (8.0-11.0); Monocytes % 7.2; Neutrophils % 82.5; Platelet Count 134 10^3/uL (130-400); RBC 3.78 10^6/uL (4.36-5.78); RDW 13.8 % (11.8-14.1); RDW-SD 44.7 fL; WBC 4.19 10^3/uL (4.4-10.8)
[2022-12-28 15:13] LABS: ALT 45 U/L (16-63); AST 28 U/L (15-37); Albumin 3.6 g/dL (3.4-5.0); Alkaline Phosphatase 123 U/L (46-116); Anion Gap 5.7 mmol/L (3-11); BUN 15 mg/dL (7-18); Bilirubin, Total 1.4 mg/dL (0.2-1.0); CO2 29.3 mmol/L (21.0-32.0); CREATININE 0.9 mg/dL (0.70-1.30); Calcium 9.4 mg/dL (8.5-10.1); Chloride 102 mmol/L (98-107); Estimated GFR 92.45 (mL/min/1.73m2); Glucose 112 mg/dL (74-106); LDH 164 U/L (85-227); Sodium 137 mmol/L (136-145); Total Protein 6.7 g/dL (6.4-8.2)
[2022-12-29 09:25] LABS: IgA 82 mg/dL (85-499); IgG 501 mg/dL (610-1616); IgM 581 mg/dL (35-242)
[2023-01-01 16:16] LABS: PSA, Ultrasensitive <0.01 ng/mL (<= 4.5)
[2023-01-01 16:22] LABS: Testosterone, Total <7.0 ng/dL (240-950)
== END 2022-12-28 04:07 | disposition home or self-care (01) ==
LOC: LBO 04:10
PROVIDERS: PCP Family Medicine; Visit Provider Radiology Radiation Oncology
DX: C61 Malignant neoplasm of prostate (principal); C88.0 Waldenstrom macroglobulinemia
CPT/HCPCS: 36415; 80053; 82784; 84153; 84403; 83615; 85025

== ENCOUNTER 2023-02-21 08:27 | Day surgery (SDC) | payer MEDICARE, SELFPAY ==
[2023-02-21] VITALS (11 sets, daily range): BP systolic 90–131; BP diastolic 56–78; PULSE 48–73; RESP 14–19; TEMP 36–36.7; O2SAT 95–100; BMI 26.9
--- NOTE | 2023-02-21 06:42 | W.PREOPHP ---
Assessment and Plan Assessment and plan (1) Incisional hernia: Status: Acute Assessment and plan: Champ is a pleasant 67-year-old gentleman who comes in with an incisional hernia. I spent 30 minutes discussing the procedure itself. We reviewed the pathophysiology of hernias as well as the area repair with mesh. I reviewed activity restrictions after surgery with him. We reviewed the reasons to have a hernia repaired as well as the signs and symptoms of strangulation. With as active as the patient is I do think that he would benefit from having a hernia repair. After conversation he seemed to have a good understanding of the procedure and its risks. Risks, benefits and complications have been reviewed. Complications include but are not limited to bleeding, pain, infection, injury to underlying structures like bowel, recurrence, hematoma, seroma, chronic pain and adverse reaction to the medication. Questions were entertained and answered to their satisfaction and they wished to proceed. No guarantees were given or implied. He will call us once he takes a look at the calendar to schedule his surgery. Anesthesia: general Previous surgical intolerances: No Previous surgical complications: No Pulmonary risk factors: none Planned procedure: Yes Sleep apnea risks: No Can climb one flight of stairs (12-13 steps) in less than 30 seconds without stopping and without symptoms: Yes The surgery proposed for this patient is: low risk Active cardiac conditions: none Active risk factors: none ASA (acetylsalicylic acid): not used Beta blockers: not used Proceed with incisional hernia repair with mesh Qualifiers: Obstruction and gangrene presence: without obstruction or gangrene Qualified Code(s): K43.2 - Incisional hernia without obstruction or gangrene History of Present Illness Narrative: Champ Jurado is a pleasant 67-year-old gentleman who was referred by his primary care physician regarding an incisional hernia. He was diagnosed with prostate cancer and underwent a robotic prostatectomy. Over the last few months he noted a small bulge just to the right of the incision. It is somewhat uncomfortable at times. He has had no changes in bowel habits, nausea, vomiting. He is a very active 67-year-old who still loves to mountain bike and ski. 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 He is lifting up to 80 pounds sometimes. He can see the hernia when he stands up. He has never had it gets stuck to where he has pain. Aside from his prostate cancer he is a very healthy gentleman. He did have COVID in November and took Paxlovid. He had a cough for quite some time but that is now slowly settling down. He is still able to do all of his activities Review of Systems All systems reviewed & are unremarkable except as noted in HPI and below PFSH All Active Problems Incisional hernia (Acute) Erectile dysfunction (Acute) Preventative health care (Acute) COVID-19 (Acute ~06/23/22) Thyroid disease (Acute) Rash (Acute) Actinic keratoses (Acute) Abnormal thyroid uptake (Acute) Prostate cancer (Chronic) Tubular adenoma of colon (Acute) Elevated PSA (Acute) Long-term current use of testosterone replacement therapy (Acute) Bronchitis (Acute) likely viral History of umbilical hernia repair (Acute) Status post inguinal hernia repair (Acute) Lumbosacral radiculopathy at L5 (Chronic) Left foot drop (Chronic) Waldenstroms macroglobulinemia (Chronic) Umbilical hernia (Chronic) Polyp of colon (Chronic) T.A. Lumbago (Chronic) Knee pain (Chronic) DJD right knee Hypogonadism in male (Chronic 07/21/16) Other specified cardiac dysrhythmias (Chronic) rubi rhythm by ECG Benign prostatic hyperplasia (Chronic 10/13/09) Medical History Cholelithiasis without obstruction (03/08/90) Surgical History History of abdominal prostatectomy S/P scrotal varicocelectomy S/P Achilles tendon repair bilaterally Repair of umbilical hernia Repair of inguinal hernia B/L Family History Mother , age 93 Diabetes Father , age 75 Heart disease Brother Diabetes Heart disease Maternal Grandfather No problems noted. Paternal Grandfather No problems noted. Maternal Grandmother Diabetes Paternal Grandmother , CHILDBIRTH at age 40. No problems noted. Sister No problems noted. Sister No problems noted. Brother No problems noted. Brother No problems noted. Son Adopted Asthma Daughter Substance abuse Depression Adopted Daughter No problems noted. Social History Smoking/Tobacco Use Status: Never Second Hand Exposure: Yes Counseling given: other Smoking risk assessment performed?: Yes Alcohol Intake: current Alcohol Intake frequency: a few times a week Alcohol type: beer Drug use: Occasionally Substance use type: marijuana Counseling given: No Counseling provided: none Caregiver/Support person: No Household members: spouse Housing: house Communication Needs: None Do you need help understanding health information?: Rarely current occupation: Retired Pets and animals: No Sexually active: Yes Do you think of yourself as: straight/heterosexual Current gender identity: male What is your relationship status?: How often do you talk on the phone with friends or family?: three or more times per week How often do you get together with friends or relatives?: twice per week How often do you attend hindu or lutheran services?: 1-3 times per year Do you belong to any clubs or organized social groups?: yes Panel score (0-1 are the most socially isolated patients): 3 What type of physical activity do you participate in: walking and other Details: Hiking, Skiing Duration: 15-30 minutes/day Frequency: 5-6 times per week Meghan/Cheondoism: Worship Special meghan needs: No Seatbelt use: always Helmet use: Yes Helmet use: always Drive intox 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 Do you feel safe at home: Yes Do you feel safe in your relationship?: Yes Victim of physical abuse: No Victim of emotional abuse: No Victim of sexual abuse: No Would you like helpful sources: No Meds Allergies and Home Medications Allergies Allergy/AdvReac Type Severity Reaction Status Date / Time Sulfa (Sulfonamide Allergy Intermediate SKIN RASH Verified 02/21/23 08:41 Antibiotics) Home Medications Medication Instructions Recorded Confirmed Type diazepam 5 mg tablet 5 mg PO BID PRN anxiety #40 05/21/18 02/21/23 Rx tab-caps lactobacillus combination no.8 3 3,000 mmu cells PO DAILY 04/16/20 02/21/23 History billion cell capsule (Adult Probiotic) multivitamin (Daily Multi-Vitamin 1 tab PO DAILY 04/16/20 02/21/23 History tablet) sildenafil 100 mg tablet (Viagra) 100 mg PO As Directed #90 tabs 12/15/20 02/21/23 Rx ibuprofen 600 mg tablet 600 mg PO TID PRN pain #90 tabs 09/02/22 02/21/23 Rx Exam Const General: cooperative, comfortable and no acute distress Nutritional Appearance: average body habitus Orientation: alert and oriented x3 HENMT Head: normocephalic and atraumatic Resp Effort & Inspection: normal respiratory effort Auscultation: clear to auscultation bilaterally Cardio Rate: regular rate Rhythm: regular rhythm Heart Sounds: no gallops, no murmurs and no rubs GI Inspection: scar (well healed) Palpation: soft, no hepatosplenomegaly and hernia (at his old scar)
--- NOTE | 2023-02-21 06:44 | ROE_ITS ---
Date of service: 02/21/23 Time of Service: 10:30 Operative Note Operative Note DATE OF PROCEDURE: 02/21/23 PRE-OP DIAGNOSIS: Incisional hernia PROCEDURE: Incisional hernia repair with mesh SURGEON: Pamela Richards GOLF COURSE ARCHITECT: Hali Howard ANESTHESIA TYPE: Local By Surgeon and General LMA/ETT Refer to Anesthesia Record ESTIMATED BLOOD LOSS: 20 PATHOLOGY: none sent COMPLICATIONS: None Patient was transported to: PACU Patient's condition: stable Implants: Ventrio ST Hernia Patch: REF- [id number] 12 x 8 cm LOT- [id number] - 2023-12-05 Indications: Champ is a pleasant 67-year-old gentleman who comes in with an incisional hernia. I spent 30 minutes discussing the procedure itself. We reviewed the pathophysiology of hernias as well as the area repair with mesh. I reviewed activity restrictions after surgery with him. We reviewed the reasons to have a hernia repaired as well as the signs and symptoms of strangulation. With as active as the patient is I do think that he would benefit from having a hernia repair. After conversation he seemed to have a good understanding of the procedure and its risks. Risks, benefits and complications have been reviewed. Complications include but are not limited to bleeding, pain, infection, injury to underlying structures like bowel, recurrence, hematoma, seroma, chronic pain and adverse reaction to the medication. Questions were entertained and answered to their satisfaction and they wished to proceed. No guarantees were given or implied. Findings: 3 x 3 cm defect at the site of the old incision. Tunneling of fat to the right of midline No adhesions Procedure Description: After informed consent was obtained the patient was taken to the operating room and placed in a supine position. Monitors and SCDs were applied and a timeout was done. The patient's name, date of , procedure type, procedure site, allergies to medications, preoperative antibiotic, and DVT prophylaxis we re all reviewed. Fire risk was assessed. Anesthesia then did a rectus block under US guidance. Please see their separate procedure note. Next the abdomen was prepped and draped in a sterile surgical fashion. 0.5% Bupivacaine was injected into the dermis. An incision was made with a 10 blade. Dissection was done with cautery through the subcutaneous tissues down to the fascia. The hernia defect was identified and measured 3 cm x 3 cm. The hernia sac was opened and the peritoneum was swept for adhesions. No adhesions were noted. An 8 x 12 cm mesh was then placed under the peritoneum and at the 3 and 9 o'clock position with 2-0 Proline. Absorbable tacks were used to secure the mesh between the 7 and 5 o'clock position and the 11 to 1 o'clock position. Once the mesh was secured the tissues were irrigated with some normal saline. No bleeding was identified. The fascia was closed over the mesh with 0 proline running suture. The subcutaneous tissue was re-approximated with interrupted 3- 0 vicryl. The dermis was re-approximated with a running 4-0 MOnocryl. The skin was cleaned and dried and skin affix was applied. The patient was woken up and taken back to recovery in stable condition. There were no immediate complications. Sponge, instrument and needle counts were correct at the end of the case x2.
--- NOTE | 2023-02-21 06:50 | PDOC.DSDIS_ITS ---
Date of service: 02/21/23 Time of Service: 13:25 Discharge Plan Disposition Patient Disposition: Home Condition: Stable Discharge Details Reason For Visit: incisional hernia Attending Provider: Pamela Richards Primary Care Provider: Urbano Johnson Home Meds and New Rx's Prescriptions: New tramadol 50 mg tablet 50 mg PO Q6H PRNQty: 14 0RF Continued sildenafil [Viagra] 100 mg tablet 100 mg PO As Directed Qty: 90 3RF Rx Instructions: 2 hours before intercourse diazepam 5 mg tablet 5 mg PO BID PRN (Reason: anxiety) Qty: 40 1RF multivitamin [Daily Multi-Vitamin] Tablet 1 tab PO DAILY Adult Probiotic 3 billion cell capsule 3,000 mmu cells PO DAILY Rx Instructions: administer with a meal ibuprofen 600 mg tablet 600 mg PO TID PRN (Reason: pain) Qty: 90 4RF Discharge Instructions Instructions: Ventral Hernia Repair (DC) Additional Instructions: Activity at Home after surgery: 1. Make sure you walk a few times per day 2. You should be able to climb a flight of stairs 3. No driving while in pain or taking pain medications 4. No strenuous activity or heavy lifting for 4 weeks (open surgery) Diet, Nutrition, & wound healin. Avoid alcohol until after you are recovered from your surgery 2. Make sure to eat plenty of lean protein (meat, fish, eggs, cottage cheese, beans) 3. Eat a variety of fruits and vegetables. Eat plenty of high fiber foods to avoid constipation. 4. Drink plenty of liquids to stay hydrated and avoid constipation Pain Medications: 1. Tylenol 650mg every 6 hours as needed and Ibuprofen 600 mg every 6 hours as needed. You may alternate between the 2 medications every 3 hours 2. If a narcotic has been prescribed take as directed only for breakthrough pain For Constipation: 1. Take Milk of Magnesia or MiraLax as needed for constipation Other: 1. You may shower daily. Do not scrub the incisions 2. Do not soak the incisions for 1 week 3. You may alternate ice and heat as needed for pain and swelling Wound Care: 1. Keep the incisions clean and dry Please call our office if you develop: 1. Fevers >101.5 2. Nausea or Vomiting 3. Worsening pain 4. Redness and thick discharge from the wounds If after hours please call the Hospital at and ask to speak to the on-call surgeon Referrals: Pamela Richards MD [ [facility] STAFF PHYSICIAN] - Activity:: as above Remove Dressings/Wound Care:: Do Not Remove Shower/Bathe:: 24 hours Diet:: As Tolerated Discharge Orders Discharge Orders: Discharge Order (Routine); Ordered 02/21/23 Ordered By: Pamela Richards DS: Diagnosis Discharge Diagnosis (1) Incisional hernia: Status: Acute Asessment and Plan: The patient is doing well post-op from his incisional hernia repair surgery.? he is having no nausea or vomiting. He is tolerating liquids and a snack. The pt is not having any chest pain or SOB.? His pain is adequately controlled. ?HEENT:? no eye pain/drainage/redness/swelling. Mild sore throat ?Cardio- NSR, no chest pain, BP stable- see VS record ?Pulm: no sob or productive cough. No hemoptysis ?Incision- dressing is c/d/i w/ no excessive bleeding or drainage ?I discussed with the patient the findings at the time of surgery and the patient?s progress. ?We reviewed expectations at home; what the patient could expect for recovery time, and in the post-operative period.? We discussed the importance of walking to avoid blood clots and pneumonia.? We discussed and reviewed the patient's post-operative wound care and dressing needs.?? We reviewed their step-garrido pain management plan, Rx called to the pharmacy of their choice.? We reviewed activity and limitations-see discharge instructions. We reviewed warning signs, and when to seek medical attention- see d/c instructions.?? Patient was given a postoperative follow-up appointment. Patient verbalized understanding of their postoperative instructions, how do to take care of themselves and their incision, and the pain management plan. Please see discharge instructions.?
--- NOTE | 2023-02-21 06:51 | ANES.PREOP_ITS ---
General Info Date of Service Date Performed: 02/21/23 Height: 5 ft 9.5 in Weight: 83.915 kg Body Mass Index (BMI): 26.9 Surgical Procedure: Operation Date: 02/21/23 09:40 Proposed Procedure Side Surgeon p Herniorrhaphy Incisional w/Mesh Pamela Richards MD Meds Allergies and Home Medications Allergies Allergy/AdvReac Type Severity Reaction Status Date / Time Sulfa (Sulfonamide Allergy Intermediate SKIN RASH Verified 02/21/23 08:41 Antibiotics) Home Medication Medication Instructions Recorded diazepam 5 mg tablet 5 mg PO BID PRN anxiety #40 05/21/18 tab-caps lactobacillus combination no.8 3 3,000 mmu cells PO DAILY 04/16/20 billion cell capsule (Adult Probiotic) multivitamin (Daily Multi-Vitamin 1 tab PO DAILY 04/16/20 tablet) sildenafil 100 mg tablet (Viagra) 100 mg PO As Directed #90 tabs 12/15/20 ibuprofen 600 mg tablet 600 mg PO TID PRN pain #90 tabs 09/02/22 Current Visit Medications: Current Medications Generic Name Dose Route Start Last Admin Trade Name Freq PRN Reason Stop Dose Admin Acetaminophen 1,000 mg 02/21/23 06:00 Acetaminophen 500 Mg Tab PO 02/21/23 23:59 PREOP WERO Celecoxib 200 mg 02/21/23 06:00 Celecoxib 200 Mg Cap PO 02/21/23 23:59 PREOP WERO Gabapentin 600 mg 02/21/23 06:00 Gabapentin 300 Mg Cap PO 02/21/23 23:59 PREOP WERO Ringer's Solution 1,000 mls @ 80 mls/hr 02/21/23 06:00 IV 02/21/23 23:59 INFUSION WERO Cefazolin Sodium/Dextrose 2 gm in 50 mls @ 100 mls/hr 02/21/23 06:00 Ancef Duplex IVPB 02/21/23 23:59 PREOP WERO IV Miscellaneous Supplies 1 each 02/21/23 06:00 Iv Access IV 02/21/23 23:59 DIRECTED WERO Sodium Chloride 0 ml 02/21/23 06:00 Normal Saline Flush 10 Ml Syr IV 02/21/23 23:59 PRN PRN Sodium Chloride 0 ml 02/21/23 06:00 Normal Saline 10 Ml Vial IJ 02/21/23 23:59 DIRECTED PRN Sterile Water 0 ml 02/21/23 06:00 Water,Injection,Sterile 10 Ml Vial IJ 02/21/23 23:59 DIRECTED PRN PFSH Active Problems Active Problems: Problem Status Onset Code Incisional hernia K43.2 Erectile dysfunction N52.9 Preventative health care Z00.00 COVID-19 ~06/23/22 U07.1 Thyroid disease E07.9 Rash R21 Actinic keratoses L57.0 Abnormal thyroid uptake R94.6 Prostate cancer C61 Tubular adenoma of colon D12.6 Elevated PSA R97.20 Long-term current use of testosterone replacement therapy Z79.890 Bronchitis J40 History of umbilical hernia repair Z98.890, Z87.19 Status post inguinal hernia repair Z98.890, Z87.19 Lumbosacral radiculopathy at L5 M54.17 Left foot drop M21.372 Waldenstroms macroglobulinemia C88.0 Umbilical hernia K42.9 Polyp of colon K63.5 Lumbago M54.5 Knee pain M25.569 Hypogonadism in male 07/21/16 E29.1 Other specified cardiac dysrhythmias I49.8 Benign prostatic hyperplasia 10/13/09 N40.0 Medical History Medical History Cholelithiasis without obstruction (03/08/90) Surgical History Surgical History History of abdominal prostatectomy S/P scrotal varicocelectomy S/P Achilles tendon repair bilaterally Repair of umbilical hernia Repair of inguinal hernia B/L Tobacco Smoking/Tobacco Use Status: Never Passive smoking exposure: Yes Second hand exposure: Yes Counseling given: other Alcohol Alcohol Intake: current Alcohol intake frequency: a few times a week Alcohol t ype: beer Substance Use Substance use: Occasionally Substance use type: marijuana Counseling provided: none Vital Signs and Lab Results Vital Signs Most Recent Vital Signs in EMR: Temp Pulse Resp BP Pulse Ox 36 C L 73 16 130/76 97 02/21/23 08:32 02/21/23 08:32 02/21/23 08:32 02/21/23 08:32 02/21/23 08:32 Lab Results Blood Type / Crossmatch: No Data to Display Complete Blood Count: No Data to Display Complete Metabolic Panel: No Data to Display Liver Function Panel: No Data to Display Coagulation Panel: No Data to Display Cardiac Panel: No Data to Display Arterial Blood Gas: No Data to Display Venous Blood Gas: No Data to Display Pancreas Panel: No Data to Display Thyroid Panel: No Data to Display Infectious Disease: No Data to Display Blood Cultures: 2 No Data to Display Toxicology Panel: No Data to Display Anesthesia Assessment and Plan Anesthesia History Personal History: No History of Anesthesia Complications Family History: No Family History of Anesthesia Complications Exercise Tolerance Exercise Tolerance: Metabolic Equivalents>4 Cardiac & Pulmonary Exam Cardiac Exam: Normal S1/S2 Heart Sounds Pulmonary Exam: Clear Bilateral Breath Sounds Implantable Cardiac Device Does patient have a Pacemaker or an ICD?: No Airway Exam Known Difficult Airway: No Mallampati Class: 4 Mouth Opening: Narrow (< 3cm) Thyromental Distance: Less than 3 cm Neck Range of Motion: Limited ROM Neck Circumference: Normal Teeth Condition: Normal Dentition ASA Classification ASA Score: ASA 2 Emergency Case?: No NPO Status NPO Status: NPO Clears >2 hours, Solids >8 hours Anesthesia Plan Resuscitation Status: Full Code Anesthesia Technique: General Anesthesia Airway Planned: LMA Pain Management: Surgeon and patient request nerve block Monitors Used: Standard Monitors Preoperative Comments:: 67 yo male for hernia repair. Sig PMHx: denies major, never smoker, occ EtOH, occ cannabis.
[2023-02-21] MEDS: Lactated Ringers 1,000 ML 80 ML IV (08:57)
[2023-02-21] MEDS: Acetaminophen 500 MG TAB 1000 MG PO (09:16)
[2023-02-21] MEDS: Celecoxib 200 MG CAP PO (09:17)
[2023-02-21] MEDS: Gabapentin 300 MG CAP 600 MG PO (09:18)
[2023-02-21] MEDS: ceFAZolin 2 GM/50 ML BAG IVPB (10:20)
--- NOTE | 2023-02-21 10:38 | W.ANESNERVE ---
Nerve Block Single Injection Procedure Date and Time Date Performed: 02/21/23 Procedure Start: 10:24 Location Where Procedure Performed Procedure Location: Operating Room Procedure Stop: 10:31 Reason Performed: Postoperative Analgesia Requesting Provider: Pamela Richards Timeout Performed Timeout Performed: Yes Monitoring Used ECG, Blood Pressure and SpO2 Sterility Sterility: Hand Hygiene, Surgical Cap, Surgical Mask, Sterile Gloves and Chlorhexidine Sedation Given During Procedure Sedation Given (Indicate Dose Given): No Sedation given Patient Mental Status Patient Mental Status: Performed under general anesthesia Nerve Block 1st Nerve Block: Laterality: Bilateral Block Type: Rectus Sheath (Bilateral) Ultrasound Image Saved?: Yes Needle / Catheter Used: 100mm SonoPlex II Local Anesthetic Bolus (Indicate Dose Given): Half of Total block solution given into each side, Bupivacaine 0.375% Dose:: 12 mL and Exparel Dose:: 7 mL Additives (Indicate Dose Given): None Ultrasound: Sterile probe cover and gel used Nerve Stimulator: Not Used Paresthesia: None Procedure Tolerated: No Complications Procedure Outcome: Successful Performed By: Mahendra Mireles
[2023-02-21] MEDS: Bupivacaine 0.25% Pres-Free 30 ML VIAL (10:52)
--- NOTE | 2023-02-21 11:31 | W.ANESPOSTOP ---
Postoperative Evaluation Date, Time and Location Date Performed: 02/21/23 Time Performed: 11:31 Patient Location: Day Surgery Unit Vital Signs Most Recent Imported Vital Signs: Most Recent Vital Signs Temp Pulse Resp BP Pulse Ox 36.2 C L 58 L 16 99/56 L 97 02/21/23 11:08 02/21/23 11:08 02/21/23 11:08 02/21/23 11:08 02/21/23 11:08 Pain Score Most Recent Pain Score: Most Recent Pain Score Pain Level 0 02/21/23 11:08 Assessment Mental Status: Awake (Alert & Oriented to Patient Baseline) Airway and Respiratory Function: Patent airway with normal (patient baseline) respiratory exam Cardiovascular Function: Hemodynamically Stable Hydration Status: Adequately Hydrated Nausea & Vomiting: No Nausea or Vomiting Pain: Pain is tolerable per patient Peripheral Nerve Block: Patient did not receive a nerve block
[2023-02-21] MEDS: fentaNYL 100 MCG/2 ML VIAL IVP ×2 (11:50→12:00)
== END 2023-02-21 13:48 | disposition home or self-care (01) ==
LOC: SUR 08:27
PROVIDERS: PCP Family Medicine; Visit Provider Surgery
PROC: (CPT 49593; principal; 2023-02-21 09:30)
DX: K43.2 Incisional hernia without obstruction or gangrene (principal); Z85.46 Personal history of malignant neoplasm of prostate; C88.0 Waldenstrom macroglobulinemia; M21.372 Foot drop, left foot
CPT/HCPCS: 49593; 76942; C1781; J0690; J1100; J1885; J2405; J3010; J3475

== ENCOUNTER → 2023-03-09 09:56 | Outpatient (BNVA) | payer MEDICARE, SELFPAY | PROVIDERS: PCP Family Medicine; Referring Provider Family Medicine; Visit Provider Surgery | DX: Z48.817 Encounter for surgical aftercare following surgery on the skin and subcutaneous tissue (principal) ==

== ENCOUNTER 2023-05-16 13:26 | Outpatient (CLI) | payer MEDICARE, SELFPAY ==
--- NOTE | 2023-05-16 13:15 | RT.EKG_ITS ---
APPROVED REPORT Exam: Resting ECG Reason for Exam: [place] Patient Location: O HR:70 bpm ECG Measurements Heart Rate 70 AXIS CO 167 P 57 QRSd 113 QRS -61 QT 405 T 52 QTc 437 Conclusion Sinus rhythm...normal P axis, V-rate 50- 99 Left anterior fascicular block...axis(240,-40), init forces inf Posterior infarct, old...prom R T, V1-V3 or Q >40mS, V7-V9 I have reviewed and interpreted ECG and agree with software generated interpretation.
== END 2023-05-16 13:27 | disposition home or self-care (01) ==
LOC: DI.CM 13:29
PROVIDERS: PCP Family Medicine; Visit Provider Family Medicine
DX: Z02.1 Encounter for pre-employment examination (principal)
CPT/HCPCS: 93010

== ENCOUNTER → 2023-05-24 02:42 | Outpatient (CLI) | payer MEDICARE, SELFPAY ==
--- NOTE | 2023-05-24 06:00 | ETT_ITS ---
APPROVED REPORT Exam: Exercise Treadmill Patient Location: Out-Patient Room/Bed: Stress Nurse: Rola Dawn RN Ordering Provider:SHERMAN DAVIS, Contact Number: [phone] BMI: 28.12 Baseline Rhythm: Sinus Rhythm Indications: Abnl ekg Medical History Medical History: BPH, prostate CA, other specified cardiac dysrhythmia Cardiac Medications: Diazepam, sildenafil Allergies: Sulfa Cardiac Risk Factors: Family Hx Previous Cardiac Procedures: None Pretest Chest Pain Characteristics: None Exercise History: Indeterminate Physical Disabilities: None Lung Sounds: Clear to auscultation Heart Sounds: Regular Stress Test Details Test: Exercise stress testing was performed using a Nehemiah protocol. Rest Stress HR Resting HR Supine: 75 bpm Max Heart Rate (APMHR): 150 bpm Resting HR Standin bpm Target HR (85% APMHR): 128 bpm Max HR Achieved: 150 bpm % of APMHR: 100 Recovery HR: 85 bpm HR response to stress: Normal HR response to stress BP Resting BP Supine: 126/74 mmHg Resting BP Standin/76 mmHg Max BP: 198/68 mmHg Recovery BP: 138/70 mmHg BP response to stress: Normal blood pressure response to stress. ECG Resting ECG: Sinus Rhythm Ectopy: None Stress ECG: Sinus Tachycardia ST Change: No significant ST segment changes noted Arrhythmia: Occasional PAC's Recovery ECG: Sinus Rhythm Recovery ST Change: No significant ST segment changes noted Recovery Arrhythmia: Occasional PAC's Clinical Reason for Termination: Target HR Achieved, Fatigue Stress Symptoms: General Fatigue Exercise duration: 03 min50 sec Highest Stage Reached: Stage 2: 2.5 mph at 12% grade. Exercise capacity: 5.65 METs Angina Score: None Silva Treadmill Score: 3.2 Rate Pressure Product: [id number] Stress ECG Conclusion 1. Resting electrocardiogram shows left axis deviation, nonspecific IVCD 2. Patient exercised on the Nehemiah protocol. 5.65 METS 3. Normal heart rate and blood pressure response to exercise. Patient achieved 100% of predicted hea rt rate for age 4. There was no electrocardiographic evidence of myocardial ischemia 5. There were no significant dysrhythmias Silva Treadmill Score is 3.2 which is Moderate risk. Stress Test Summary STAGE Time (mins) Speed (mph) Grade (%) HR BP SpO2 SYMPTOMS METS Supine 75 126/74 Standing 82 128/76 1 3 1.7 10 140 190/80 4.5 2 6 2.5 12 148 7 1 min recovery 125 198/68 3 min recovery 88 158/78 6 min recovery 85 138/70
== END ==
PROVIDERS: PCP Family Medicine; Visit Provider Family Medicine
DX: R94.31 Abnormal electrocardiogram [ECG] [EKG] (principal)
CPT/HCPCS: 93016; 93018; 93017

== ENCOUNTER 2023-10-03 13:44 | Outpatient (CLI) | payer MEDICARE, SELFPAY ==
[2023-10-03 13:56] LABS: Abs Immature Grans 0.02 10^3/uL (0.0-0.06); Absolute Basophil Count 0.03 10^3/uL (0.0-0.2); Absolute Eosinophil Count 0.06 10^3/uL (0.0-0.7); Absolute Lymphocyte Count 0.93 10^3/uL (1.2-3.4); Absolute Monocyte Count 0.32 10^3/uL (0.1-0.8); Absolute Neutrophil Count 4.04 10^3/uL (1.2-6.7); Basophils % 0.6 %; Eosinophils % 1.1 %; HCT 36.1 % (40.0-50.0); HGB 12.5 g/dL (13.5-17.5); Immature Grans % 0.4 %; Lymphocytes % 17.2 %; MCH 30.5 pg (27.0-33.0); MCHC 34.6 % (32.0-36.0); MCV 88 fL (80-95); MPV 8.4 fL (8.0-11.0); Monocytes % 5.9 %; Neutrophils % 74.8 %; Platelet Count 150 10^3/uL (130-400); RDW 13.6 % (11.8-14.1)
[2023-10-05 12:02] LABS: PSA, Ultrasensitive <0.01 ng/mL (<= 6.5)
[2023-10-08 13:42] LABS: Testosterone, Total 88 ng/dL (240-950)
== END 2023-10-03 13:45 | disposition home or self-care (01) ==
LOC: LBO 13:49
PROVIDERS: Radiology Radiation Oncology; PCP Family Medicine; Visit Provider Nurse Practitioner Adult Health
DX: C88.0 Waldenstrom macroglobulinemia (principal); C61 Malignant neoplasm of prostate
CPT/HCPCS: 36415; 84153; 84403; 85025

== ENCOUNTER 2023-10-24 03:55 | Outpatient (CLI) | payer MEDICARE, SELFPAY ==
[2023-10-24 14:09] LABS: ALT 31 U/L (16-63); AST 19 U/L (15-37); Albumin 4.1 g/dL (3.4-5.0); Alkaline Phosphatase 122 U/L (46-116); Anion Gap 7.5 mmol/L (3-11); BUN 15 mg/dL (7-18); Bilirubin, Total 1.48 mg/dL (0.2-1.0); CO2 28.5 mmol/L (21.0-32.0); CREATININE 0.9 mg/dL (0.70-1.30); Calcium 9.5 mg/dL (8.5-10.1); Chloride 106 mmol/L (98-107); Estimated GFR 91.88 (mL/min/1.73m2); Glucose 105 mg/dL (74-106); LDH 173 U/L (85-227); Potassium 4.1 mmol/L (3.5-5.1); Sodium 142 mmol/L (136-145); Total Protein 7.4 g/dL (6.4-8.2)
[2023-10-25 09:41] LABS: IgA 72 mg/dL (85-499); IgG 524 mg/dL (610-1616); IgM 618 mg/dL (35-242)
== END 2023-10-24 03:56 | disposition home or self-care (01) ==
LOC: LBO 03:55
PROVIDERS: PCP Family Medicine; Visit Provider Internal Medicine Hematology & Oncology
DX: C88.0 Waldenstrom macroglobulinemia (principal); C61 Malignant neoplasm of prostate
CPT/HCPCS: 80053; 82784; 83615

== ENCOUNTER 2024-04-16 14:48 | Outpatient (CLI) | payer MEDICARE, SELFPAY ==
[2024-04-16 15:00] LABS: Abs Immature Grans 0.05 10^3/uL (0.0-0.06); Absolute Basophil Count 0.04 10^3/uL (0.0-0.2); Absolute Eosinophil Count 0.08 10^3/uL (0.0-0.7); Absolute Lymphocyte Count 1.02 10^3/uL (1.2-3.4); Absolute Monocyte Count 0.46 10^3/uL (0.1-0.8); Absolute Neutrophil Count 6.14 10^3/uL (1.2-6.7); Basophils % 0.5 %; HCT 39.4 % (40.0-50.0); HGB 13.6 g/dL (13.5-17.5); Immature Grans % 0.6 %; Lymphocytes % 13.1 %; MCHC 34.5 % (32.0-36.0); MCV 87 fL (80-95); MPV 8.6 fL (8.0-11.0); Monocytes % 5.9 %; Neutrophils % 78.9 %; Platelet Count 203 10^3/uL (130-400); RBC 4.53 10^6/uL (4.36-5.78); RDW 13.7 % (11.8-14.1); RDW-SD 43.8 fL; WBC 7.79 10^3/uL (4.4-10.8)
[2024-04-16 15:13] LABS: ALT 25 U/L (16-63); AST 22 U/L (15-37); Albumin 3.8 g/dL (3.4-5.0); Alkaline Phosphatase 140 U/L (46-116); Anion Gap 4.3 mmol/L (3-11); BUN 10 mg/dL (7-18); Bilirubin, Total 1.13 mg/dL (0.2-1.0); CO2 32.7 mmol/L (21.0-32.0); Calcium 8.6 mg/dL (8.5-10.1); Chloride 101 mmol/L (98-107); Estimated GFR 80.47 (mL/min/1.73m2); Glucose 100 mg/dL (74-106); LDH 159 U/L (85-227); Potassium 4.1 mmol/L (3.5-5.1); Sodium 138 mmol/L (136-145); Total Protein 7.2 g/dL (6.4-8.2)
[2024-04-17 10:34] LABS: IgA 77 mg/dL (85-499); IgG 550 mg/dL (610-1616); IgM 731 mg/dL (35-242)
[2024-04-18 11:18] LABS: PSA, Ultrasensitive <0.01 ng/mL (<= 6.5)
[2024-04-20 10:16] LABS: Testosterone, Total 194 ng/dL (240-950)
== END 2024-04-16 14:49 | disposition home or self-care (01) ==
LOC: LBO 14:52
PROVIDERS: Physician Assistant; PCP Family Medicine; Visit Provider Internal Medicine Hematology & Oncology
DX: C61 Malignant neoplasm of prostate (principal); C88.00 Waldenstrom macroglobulinemia not having achieved remission
CPT/HCPCS: 36415; 80053; 82784; 84153; 84403; 83615; 85025

== ENCOUNTER 2024-10-06 02:10 | Outpatient (CLI) | payer MEDICARE, SELFPAY ==
[2024-10-06 12:45] LABS: Abs Immature Grans 0.02 10^3/uL (0.0-0.06); Absolute Basophil Count 0.03 10^3/uL (0.0-0.2); Absolute Eosinophil Count 0.05 10^3/uL (0.0-0.7); Absolute Lymphocyte Count 1.16 10^3/uL (1.2-3.4); Absolute Monocyte Count 0.44 10^3/uL (0.1-0.8); Absolute Neutrophil Count 4.65 10^3/uL (1.2-6.7); Basophils % 0.5 %; Eosinophils % 0.8 %; HCT 37.3 % (40.0-50.0); HGB 13.1 g/dL (13.5-17.5); Immature Grans % 0.3 %; Lymphocytes % 18.3 %; MCH 30.6 pg (27.0-33.0); MCHC 35.1 % (32.0-36.0); MCV 87 fL (80-95); MPV 9.1 fL (8.0-11.0); Monocytes % 6.9 %; Neutrophils % 73.2 %; Platelet Count 156 10^3/uL (130-400); RBC 4.28 10^6/uL (4.36-5.78); RDW 13.7 % (11.8-14.1); RDW-SD 43.7 fL; WBC 6.35 10^3/uL (4.4-10.8)
[2024-10-06 13:06] LABS: ALT 27 U/L (16-63); AST 21 U/L (15-37); Albumin 3.9 g/dL (3.4-5.0); Alkaline Phosphatase 96 U/L (46-116); Anion Gap 9.3 mmol/L (3-11); BUN 13 mg/dL (7-18); Bilirubin, Total 1.7 mg/dL (0.2-1.0); CO2 27.7 mmol/L (21.0-32.0); CREATININE 0.7 mg/dL (0.70-1.30); Calcium 8.9 mg/dL (8.5-10.1); Chloride 102 mmol/L (98-107); Estimated GFR 98.51 (mL/min/1.73m2); Glucose 119 mg/dL (74-106); LDH 156 U/L (85-227); Potassium 4.1 mmol/L (3.5-5.1); Sodium 139 mmol/L (136-145); Total Protein 6.6 g/dL (6.4-8.2)
[2024-10-07 10:15] LABS: IgA 66 mg/dL (85-499); IgG 465 mg/dL (610-1616); IgM 624 mg/dL (35-242)
[2024-10-08 09:28] LABS: PSA, Ultrasensitive <0.01 ng/mL (<= 6.5)
[2024-10-11 17:38] LABS: Testosterone, Total 311 ng/dL (240-950)
== END 2024-10-06 02:11 | disposition home or self-care (01) ==
LOC: LBO 02:11
PROVIDERS: PCP Family Medicine; Visit Provider Physician Assistant
DX: C61 Malignant neoplasm of prostate (principal); C88.00 Waldenstrom macroglobulinemia not having achieved remission
CPT/HCPCS: 36415; 80053; 82784; 84153; 84403; 83615; 85025

== ENCOUNTER → 2025-01-12 09:19 | Outpatient (BNVA) | payer MEDICARE, SELFPAY | PROVIDERS: PCP Family Medicine; Referring Provider Family Medicine; Visit Provider Student in an Organized Health Care Education/Training Program | DX: M72.0 Palmar fascial fibromatosis [Dupuytren] (principal) | CPT/HCPCS: 99213 ==

== ENCOUNTER 2025-04-06 11:56 | Outpatient (CLI) | payer MEDICARE, SELFPAY ==
[2025-04-06 12:29] LABS: Abs Immature Grans 0.02 10^3/uL (0.0-0.06); HCT 40.8 % (40.0-50.0); HGB 14.2 g/dL (13.5-17.5); Immature Grans % 0.3 %; MCH 30.3 pg (27.0-33.0); MCHC 34.8 % (32.0-36.0); MCV 87 fL (80-95); MPV 8.9 fL (8.0-11.0); Platelet Count 161 10^3/uL (130-400); RBC 4.69 10^6/uL (4.36-5.78); RDW 13.3 % (11.8-14.1); RDW-SD 42.4 fL; WBC 7.83 10^3/uL (4.4-10.8)
[2025-04-06 12:51] LABS: ALT 23 U/L (10-49); AST 23 U/L (<34); Albumin 4.5 g/dL (3.2-5.0); Alkaline Phosphatase 90 U/L (46-116); Anion Gap 5.5 mmol/L (3-11); BUN 11 mg/dL (9-23); Bilirubin, Total 2.1 mg/dL (0.2-1.2); CO2 29.5 mmol/L (20.0-31.0); Calcium 9.4 mg/dL (8.3-10.6); Chloride 102 mmol/L (98-107); Glucose 91 mg/dL (74-106); LDH 154 U/L (120-246); Potassium 4.2 mmol/L (3.5-5.1); Sodium 137 mmol/L (136-145); Total Protein 7.1 g/dL (5.7-8.2)
== END 2025-04-06 11:57 | disposition home or self-care (01) ==
PROVIDERS: Physician Assistant; PCP Family Medicine; Visit Provider Internal Medicine Hematology & Oncology
DX: C88.00 Waldenstrom macroglobulinemia not having achieved remission (principal); C61 Malignant neoplasm of prostate
CPT/HCPCS: 36415; 80053; 82784; 84153; 83615; 85025